=== PATIENT | female | born 2000 | race Caucasian/White ===

== ENCOUNTER 2020-12-02 11:23 | Outpatient (CLI) | payer OTHER, SELFPAY ==
--- NOTE | 2020-12-02 12:11 | ECG_ITS ---
Measurements Intervals [place] Rate: 69 P: 44 NM: 142 QRS: 11 QRSD: 84 T: 19 QT: 412 QTc: 444 Interpretive Statements SINUS RHYTHM BORDERLINE T WAVE ABNORMALITY- INFERIOR LEADS BASELINE WANDER- I, II, AVR, AVF, V2 BORDERLINE ECG Electronically Signed On 12-02-2020 12:21:04 CDT by Gary An D.O.
== END 2020-12-02 11:24 | disposition home or self-care (01) ==
LOC: ANHCARD 11:30
PROVIDERS: Visit Provider Obstetrics & Gynecology
DX: Z34.80 Encounter for supervision of other normal pregnancy, unspecified trimester (principal); R55 Syncope and collapse; Z3A.00 Weeks of gestation of pregnancy not specified
CPT/HCPCS: 93005

== ENCOUNTER 2021-05-12 10:56 | Outpatient (CLI) | payer OTHER, SELFPAY ==
[2021-05-12 11:40] VITALS: BP 121/76; PULSE 97
[2021-05-12 11:46] VITALS: BP 121/76; PULSE 97
[2021-05-12 12:01] VITALS: BP 120/75; PULSE 90
[2021-05-12 12:02] LABS: Basophils Percent Auto 0.3 % (0.2-1.2); Eosinophils Absolute Auto 0.1 K/mm3 (0-0.3); Eosinophils Percent Auto 0.8 % (0-4.4); Hematocrit 35.9 % (37.0-47.0); Hemoglobin 11.8 g/dL (12.0-15.0); Immature Granulocyte Percent A 0.9 % (0-0.5); Lymphocytes Absolute Auto 1.54 K/mm3 (0.9-3.2); Lymphocytes Percent Auto 14.3 % (18.3-44.2); Mean Corpuscular HGB Conc 32.9 g/dl (32-36); Mean Corpuscular Hemoglobin 29.7 pg (26-34); Mean Corpuscular Volume 90.4 fl (80-100); Mean Platelet Volume 9.6 fl (7.4-10.4); Monocytes Absolute Auto 0.7 K/mm3 (0.1-0.6); Monocytes Percent Auto 6.6 % (2.6-8.5); Neutrophils Absolute Auto 8.3 K/mm3 (1.3-6.7); Neutrophils Percent Auto 77.1 % (45.5-73.1); Platelet Count Result 253 k/mm3 (150-375); Red Blood Count 3.97 M/mm3 (4.2-5.4); Red Cell Distribution Width 13.8 % (11.5-14.5); White Blood Count 10.8 K/mm3 (4.5-10.0)
[2021-05-12 12:08] LABS: Add Urine Microscopic? YES; Appearance Urine Cloudy (Clear); Bacteria Urine 2+ /hpf; Bilirubin Urine Negative (Negative); Blood Urine Negative (Negative); Color Urine Yellow (Yellow); Glucose Urine UA Negative (Negative); Ketones Urine Negative (Negative); Leukocyte Esterase Ur 1+ LEU/UL (NEGATIVE); Nitrate Urine Negative (Negative); Protein Urine Negative (Negative); RBC Urine 0-2 /hpf (0-2); Squamous Epithelial Cell Urine Few /hpf (Few); Urobilinogen Urine Negative mg/dL (<2.0)
[2021-05-12 12:13] LABS: Alanine Aminotransferase 14 U/L (4-35); Albumin Level 4.1 g/dL (3.5-5.1); Alkaline Phosphatase 91 U/L (38-126); Anion Gap 11 mmol/L (8-16); Aspartate Amino Transferase 17 U/L (14-36); Bilirubin,Total 0.2 mg/dL (0.2-1.3); Blood Urea Nitrogen 3 mg/dL (7-17); Calcium 9.2 mg/dL (8.4-10.2); Carbon Dioxide 21 mmol/L (22-30); Chloride 106 mmol/L (98-107); Estimated Glomerular Filt Rate > 60; Glucose 79 mg/dL (65-110); Potassium 3.8 mmol/L (3.4-5.0); Sodium 138 mmol/L (137-145); Uric Acid 5.3 mg/dL (2.5-7.5)
[2021-05-12 12:16] VITALS: BP 121/68; PULSE 86
[2021-05-12 12:18] LABS: Creatinine Urine 23.7 mg/dL; Specific Grav Ur 1.004 (1.001-1.035); Total Protein Urine Random 16 mg/dL; Ur Ttl Prot Creatinine Ratio 0.68 mg/mg (0-0.20)
--- NOTE | 2021-05-12 13:38 | PC.NURSE ---
Labs and NST called to Dr Momin, orders for NST on and 24 hour urine collection.
== END 2021-05-12 12:41 | disposition home or self-care (01) ==
LOC: ANHOBOP 11:02 → ANHOBPP 11:06
PROVIDERS: Visit Provider Student in an Organized Health Care Education/Training Program
DX: O13.9 Gestational [pregnancy-induced] hypertension without significant proteinuria, unspecified trimester (principal); Z3A.00 Weeks of gestation of pregnancy not specified
CPT/HCPCS: 36415; 59025; 80053; 81001; 82570; 84156; 84550; 85025; 87086; 99199

== ENCOUNTER 2021-05-13 11:17 | Outpatient (CLI) | payer OTHER, SELFPAY ==
[2021-05-13 11:24] VITALS: BMI 37.8
[2021-05-13 12:26] LABS: Collection Time Urine 24 HOURS
[2021-05-13 13:47] LABS: Creatinine Urine 41.5 mg/dL; Patient Weight 220 Lbs
[2021-05-13 14:29] LABS: Total Protein Urine Random < 6.0 mg/dL (0.0-11.9)
[2021-05-13 21:04] LABS: Creatinine Clearance Urine 181.1 ml/min (75-125); Total Protein Urine 24 Hr 177 mg/24hr (28-141); Total Volume 24 Hour Urine 2950 ml
== END 2021-05-13 11:18 | disposition home or self-care (01) ==
LOC: ANHOBOP 11:19
PROVIDERS: Visit Provider Student in an Organized Health Care Education/Training Program
DX: Z34.90 Encounter for supervision of normal pregnancy, unspecified, unspecified trimester (principal); Z3A.00 Weeks of gestation of pregnancy not specified
CPT/HCPCS: 81050; 82575; 84156

== ENCOUNTER 2021-05-15 14:10 | Outpatient (RCR) | payer OTHER, SELFPAY ==
[2021-05-15 14:55] VITALS: BP 129/70; PULSE 94
== END 2021-08-13 23:59 | disposition home or self-care (01) ==
LOC: ANHOBOP 14:10
PROVIDERS: Visit Provider Student in an Organized Health Care Education/Training Program
DX: O16.3 Unspecified maternal hypertension, third trimester (principal); Z3A.39 39 weeks gestation of pregnancy
CPT/HCPCS: 59025

== ENCOUNTER 2021-05-19 00:01 | Inpatient (IN) | payer OTHER, SELFPAY ==
[2021-05-19] VITALS (130 sets, daily range): BP systolic 58–160; BP diastolic 40–122; PULSE 66–143; RESP 18–20; TEMP 36.4–37.1; O2SAT 84–100; BMI 37.8
--- NOTE | 2021-05-19 00:26 | LDADM ---
This patient, Sheryl Maria, was admitted to Labor/Delivery/Recovery 106 on 05/19/21 at 00:01. Plans for labor, pain management and were discussed with patient. Patient/family oriented to hospital policies and general routines including ID bracelet, bed and alarms, visiting hours, pain management, procedures, bathroom and other care routines, personal items, smoking policy, room service/diet and guest tray routines, infant security routines, and visiting hours. Patient/Family are encouraged to report perceived risks to care and to ask questions if they do not understand what they are told or what they should do. See OBIX for further documentation.
[2021-05-19] MEDS: miSOPROStol 25 MCG TABLET VAGINAL ×3 (00:44→08:40)
[2021-05-19 00:57] LABS: Basophils Percent Auto 0.4 % (0.2-1.2); Eosinophils Absolute Auto 0.1 K/mm3 (0-0.3); Eosinophils Percent Auto 0.7 % (0-4.4); Hematocrit 34.2 % (37.0-47.0); Hemoglobin 11.3 g/dL (12.0-15.0); Immature Granulocyte Absolute 0.08 K/mm3 (0.00-0.031); Immature Granulocyte Percent A 0.7 % (0-0.5); Lymphocytes Absolute Auto 2.02 K/mm3 (0.9-3.2); Lymphocytes Percent Auto 18.3 % (18.3-44.2); Mean Corpuscular Hemoglobin 29.5 pg (26-34); Mean Corpuscular Volume 89.3 fl (80-100); Mean Platelet Volume 9.4 fl (7.4-10.4); Monocytes Absolute Auto 0.7 K/mm3 (0.1-0.6); Monocytes Percent Auto 6.7 % (2.6-8.5); Neutrophils Absolute Auto 8.1 K/mm3 (1.3-6.7); Neutrophils Percent Auto 73.2 % (45.5-73.1); Platelet Count Result 246 k/mm3 (150-375); Red Blood Count 3.83 M/mm3 (4.2-5.4)
--- NOTE | 2021-05-19 07:48 | WPDHPUPDATE1 ---
History and Physical Update Update Date/Time: 05/19/21 07:48 20 yo at 39w4d who presents for elective IOL. She denies any regular contractions, vaginal bleeding or leakage of fluid. She endorses good FM. Her has been uncomplicated thus far. History and Physical has been reviewed, including an updated exam of the patient. There are NO changes in the patient's condition. Risks, benefits, and alternatives have been discussed and questions answered. Patient agrees to proceed with procedure. A/P: admit to L&D routine admission orders Rh+ GBS neg plan for cytotec IOL FHT cat 1 continous EFM
--- NOTE | 2021-05-19 10:23 | P.PNAN_ITS ---
Anes - Eval Pre Procedure Date/Time: 05/19/21 10:23 Pre Op Diagnosis: IOL Patient Data Age: 20 Gender: F Height: 1.63 m Weight: 100 kg Last Vital Signs Temp 98.2 F 05/19/21 08:37 Pulse 84 05/19/21 08:38 Resp 20 05/19/21 08:37 BP 143/66 H 05/19/21 08:38 Allergies Allergy/AdvReac Type Severity Reaction Status Date / Time No Known Allergies Allergy Verified 05/19/21 00:59 Home Medications Medication Instructions Recorded Confirmed Type PNV cmb#95-ferrous fumarate-FA 1 tablet PO DAILY 04/25/21 05/19/21 History [] Laboratory Tests 05/19/21 05/19/21 05/19/21 00:41 00:41 00:41 WBC 11.0 K/mm3 H K/mm3 (4.5-10.0) RBC 3.83 M/mm3 L M/mm3 (4.2-5.4) Hgb 11.3 g/dL L g/dL (12.0-15.0) Hct 34.2 % L % (37.0-47.0) MCV 89.3 fl fl (80-100) MCH 29.5 pg pg (26-34) MCHC 33.0 g/dl g/dl (32-36) RDW 14.0 % % (11.5-14.5) Plt Count 246 k/mm3 k/mm3 (150-375) MPV 9.4 fl fl (7.4-10.4) Immature Gran % (Auto) 0.7 % H % (0-0.5) Neut % (Auto) 73.2 % H % (45.5-73.1) Lymph % (Auto) 18.3 % % (18.3-44.2) [place] % (Auto) 6.7 % % (2.6-8.5) Eos % (Auto) 0.7 % % (0-4.4) Baso % (Auto) 0.4 % % (0.2-1.2) Lymph # (Auto) 2.02 K/mm3 K/mm3 (0.9-3.2) [place] # (Auto) 0.7 K/mm3 H K/mm3 (0.1-0.6) Eos # (Auto) 0.1 K/mm3 K/mm3 (0-0.3) Baso # (Auto) 0.0 K/mm3 K/mm3 (0.0-0.1) Abs Immat Gran (auto) 0.08 K/mm3 H K/mm3 (0.00-0.031) Absolute Neuts (auto) 8.1 K/mm3 H K/mm3 (1.3-6.7) Absolute Nucleated RBC 0.0 K/mm3 K/mm3 (0.0-0.012) Nucleated RBC % 0.0 % % (0.0-0.2) RPR Pending Blood Type A Positive Antibody Screen Negative Patient hx anesthesia problems: none Family hx anesthesia problems: none Results Review: All pre-operative results and documents have been reviewed as part of the pre-operative evaluation. [facility] Family History Family History (Updated 04/25/21 @ 15:37 by Bony Vazquez RN) Other No pertinent family history Social History Social History Smoking status: Never smoker Substance use: never Spiritual care concerns: No Exam Day of Procedure 05/19/21 10:23 Patient weight: obese
[2021-05-19 10:41] LABS: Rapid Plasma Reagin Non-Reactive (NonReactive)
[2021-05-19] MEDS: LACTATED RINGERS 1,000 ML 125 ML IV CONT ×2 (12:25→14:46)
[2021-05-19] MEDS: OXYTOCIN 30 UNITS/NS 500 ML 30 UNITS/500 ML BAG IV CONT (12:26)
--- NOTE | 2021-05-19 20:58 | PM.OBPRVD ---
OB - Delivery Note Procedure Delivery date: 05/19/21 Procedure: mil Intrapartal events: None Induction method: per misoprostol protocol Delivery augmentation: pitocin Delivery monitor: external FHT Route of delivery: Episiotomy description: None Laceration Description: Perineal - 2nd Degree Delivery repair: vicryl Specimen: No Quantitative Blood Loss (ml): 58 Anesthesia type: Local Disposition: floor Baby Date of : 05/19/21 Time of : 20:41 Weeks of gestation at delivery: 39 gender: Female Weight (pounds): 6 Weight (ounces): 5 presentation: vertex position: Right Occiput Anterior Placenta delivery description: Spontaneous cord vessel description: 3 Vessels score one minute: 9 score five minutes: 9
[2021-05-19] MEDS: OXYTOCIN 30 UNITS/NS 500 ML 30 UNITS/500 ML BAG 125 UNITS IV CONT (21:28)
[2021-05-20 00:15] VITALS: BP 118/51; PULSE 90; RESP 18; TEMP 36.7; O2SAT 98
[2021-05-20 05:00] VITALS: BP 119/58; PULSE 76; RESP 18; TEMP 35.8; O2SAT 100
[2021-05-20 05:17] LABS: Hematocrit 31.1 % (37.0-47.0); Hemoglobin 10.1 g/dL (12.0-15.0)
[2021-05-20 08:30] VITALS: BP 117/67; PULSE 88; RESP 16; TEMP 36.8; O2SAT 99
--- NOTE | 2021-05-20 10:30 | WPDANLDPN2 ---
Anes-Prog Note L&D Date/Time: 05/20/21 10:30 Comfortable throughout: labor and delivery Neuraxial method: epidural Epidural/Spinal procedure site: clean & non-tender Neuro status: Neuro function grossly intact. Cardiovascular status: normal Respiratory status: normal Airway patency: baseline Mental status: baseline Post-Op hydration status: normal Vital Signs: Last Vital Signs Temp 36.8 C 05/20/21 08:30 Pulse 88 05/20/21 08:30 Resp 16 05/20/21 08:30 BP 117/67 05/20/21 08:30 Pulse Ox 99 05/20/21 08:30 Pain score (VAS): 2 I/O: Intake & Output 05/19/21 05/20/21 05/20/21 23:59 07:59 15:59 Output Total 178 Balance -178 Post-procedural complaints: none Patient feedback: Patient satisfied with anesthetic care.
--- NOTE | 2021-05-20 11:04 | P.PNOB_ITS ---
OB - PN: Subj Subjective Date/time seen: 05/20/21 11:04 Patient comments: no complaints, pain well controlled and tolerating diet [place] feeding status: exclusively breast feeding Narrative: patient doing well this AM. No complaints. Pain is well controlled. She reports minimal bleeding. She is ambulating and voiding without difficulty. She is tolerating PO. She denies N/V, fever, chills. OB - PN: Obj Data Labs CBC & Chem 7: 05/20/21 04:52 Labs: Laboratory Results - last 24 hr 05/20/21 04:52 Hgb 10.1 L Hct 31.1 L OB - PN A/P Plan day: 1 Plan: routine care Comments: patient doing well H/H stable continue routine care Time Spent With Patient Time: Total time spent is greater than 50% in coordination of care (as documented) at patient's floor/unit and/or counseling patient: Time with patient: less than 15 minutes Review of Systems Review of Systems: All systems reviewed & are unremarkable except as noted in HPI and below Exam Const: General: comfortable and no acute distress Resp: Effort & Inspection: normal respiratory effort Cardio: Rate: regular rate GI: GI Palp: Yes Soft to palpation and No Tenderness to palpation present (GI) Auscultation: normal bowel sounds Other: fundus firm and below umbilicus. Psych: Affect: normal affect
[2021-05-20 11:42] VITALS: BP 117/69; PULSE 94; RESP 18; TEMP 37.5; O2SAT 99
[2021-05-20 16:40] VITALS: BP 142/74; PULSE 91; RESP 20; TEMP 36.6
[2021-05-20] MEDS: IBUPROFEN 600 MG TABLET PO (16:54)
[2021-05-20 20:00] VITALS: BP 122/63; PULSE 88; RESP 18; TEMP 36.4; O2SAT 99
--- NOTE | 2021-05-21 07:13 | P.DS_ITS ---
DS: Admitting Diagnosis Discharge Date 05/21/21 Admitting Diagnosis intrauterine at term OB - DS: Summary OB Procedures : None OB Procedures Intrapartum: Spontaneous Vag Delivery OB Procedures: : None Status at Discharge Functional status at discharge: independent ambulation Overall status at discharge: patient is back to baseline Time Spent with Patient Time attestation: Total time spent providing and/or coordinating discharge services: Time spent: Less than 30 minutes Exam Const: General: comfortable and no acute distress Resp: Effort & Inspection: normal respiratory effort Auscultation: clear to auscultation bilaterally Cardio: Rate: regular rate GI: GI Palp: Yes Soft to palpation Auscultation: normal bowel sounds Other: Fundus firm below umbilicus Psych: Appearance: grossly normal Mental Status: mental status grossly normal Affect: normal affect Discharge Plan Discharge Discharging Clinician: Nikolay Momin Patient Disposition: Home, Self-Care Activity: as tolerated and pelvic rest Diet: regular Patient Instructions: Antibiotic Form, Vaginal Delivery (DC) Stand Alone Forms: General Discharge Information Follow-up/Referrals: Nikolay Momin MD [Physician] - Discharge Medications: New acetaminophen [Mapap (acetaminophen)] 325 mg Tablet 650 mg PO Q6H PRN (Reason: Mild Pain (1-3) Or Headache) Qty: 30 RF: 0 ibuprofen 600 mg Tablet 600 mg PO Q6H PRN (Reason: Cramping) Qty: 30 RF: 0 Continued PNV cmb#95-ferrous fumarate-FA [] 28 mg iron- 800 mcg Tablet 1 tablet PO DAILY RF: 0 Date of admission: 05/19/21 00:01 Primary Care Provider: PHYSICIAN,DIRECTOR SOFTWARE Admitting Provider: Nikolay Momin Attending physician on admission: Nikolay Momin Condition: Stable
[2021-05-21 07:55] VITALS: BP 114/58; PULSE 85; RESP 16; TEMP 36.8; O2SAT 99
--- NOTE | 2021-05-21 10:00 | PC.NURSE ---
Patient viewed the discharge video Mother & Baby Care, The First Two Weeks . Patient was given the opportunity and encouraged to ask questions. Patient verbalized understanding of information shared and has been given the mother/baby guide for home reference.
[2021-05-22 10:47] VITALS: BP 129/68; PULSE 92; RESP 20; TEMP 37.1; O2SAT 100
== END 2021-05-21 11:43 | disposition home or self-care (01) | DRG 560 ==
LOC: ANHLDR 00:04 → ANHOB2 05-20 00:06
PROVIDERS: Obstetrics & Gynecology; Admitting Provider Student in an Organized Health Care Education/Training Program; Visit Provider Student in an Organized Health Care Education/Training Program
DX: O76 Abnormality in fetal heart rate and rhythm complicating labor and delivery (principal); O70.1 Second degree perineal laceration during delivery; Z3A.39 39 weeks gestation of pregnancy; Z37.0 Single live birth
CPT/HCPCS: 36415; 85014; 85018; 85025; 86592; 86850; 86900; 86901; A9270; J2590; J7120

== ENCOUNTER 2023-08-11 10:27 | Emergency (ER) | payer OTHER, MEDICAID, SELFPAY ==
[2023-08-11 10:41] VITALS: BP 121/67; PULSE 102; RESP 20; TEMP 36.8; O2SAT 99
--- NOTE | 2023-08-11 10:59 | ED.GENADULT ---
HPI - General Adult General Chief complaint: Upper Respiratory Infection Stated complaint: throat/headache/body aches/ear Source: patient, RN notes reviewed and old records reviewed Mode of arrival: ambulatory Limitations: no limitations History of Present Illness HPI narrative: 23-year-old female presents to [facility] with complaint of sore throat, headache, body aches, left ear pain that started yesterday. Patient taking [id number] medications with no relief. Patient denies cough, congestion, weakness, chest pain, short of breath MD complaint: sore throat Onset (ago): day(s) (1) Related Data Home Medications Medication Instructions Recorded Confirmed vit no.95-ferrous 1 tablet PO DAILY 04/25/21 05/19/21 fumarate 28 mg-folic acid 800 mcg tablet () sertraline 50 mg tablet mg 08/11/23 Allergies Allergy/AdvReac Type Severity Reaction Status Date / Time No Known Allergies Allergy Verified 11/27/21 14:49 Review of Systems Constitutional: Constitutional: Reports no additional constitutional complaints, Reports body ache(s), Denies chills, Denies fatigue, Denies fever(s) and Reports headache(s) Eyes: Eyes: Reports no additional eye complaints and Denies blurry vision ENT: Reports system reviewed and no additional complaints, except as documented, Denies vertigo, Denies dizziness, Denies ear discharge, Denies otalgia, Denies facial pain, Denies headache(s), Denies nasal congestion, Denies nasal discharge, Denies sinus pain, Denies sinus pressure and Reports sore throat Cardiovascular: Cardiovascular: Reports no additional cardiovascular complaints, Denies chest pain, Denies chest pain at rest, Denies rapid heart rate and Denies dyspnea Respiratory: Respiratory: Reports no additional respiratory complaints, Denies chest congestion, Denies cough, Denies pain on inspiration, Denies pain with cough and Denies dyspnea Gastrointestinal: Gastrointestinal: Denies abdominal pain, Denies diarrhea, Denies nausea and Denies vomiting Integumentary/Breasts: Skin/Breast: Denies rash Neurologic: Reports system reviewed and no additional complaints, except as documented, Denies vertigo, Denies dizziness and Denies headache(s) Endocrine: Endocrine: Denies fatigue [facility] Family History Family History Other No pertinent family history Social History Social History Smoking status: Never smoker Substance use: never Spiritual care concerns: No Comments At the time of my signature, I reviewed and agree with the nursing past medical, surgical, social, and family history. There is no relevant family history pertinent to the patient complaint. Exam Const: General: cooperative, healthy appearing, no acute distress and well nourished Nutritional Appearance: well nourished Orientation/consciousness: patient oriented x3 Limitations: no limitations HENMT: Head: normal to inspection and normocephalic Ears: external ears normal, TM's normal bilaterally, mastoids normal and Abnormal EAC present Face/Nose/Sinus: normal facial exam Face and sinus: normal facial exam Mouth: Yes Normal oral and palatal mucosa present, Yes oropharynx normal and Yes moist mucous membranes Throat: tonsils normal, uvula midline, posterior oropharynx abnormal erythema and exudates and no uvular edema Eyes: General: appearance normal, both eyes and all related structures Sclera: sclerae normal Pupils: Equal, round and reactive pupils present Resp: Effort & Inspection: normal respiratory effort, able to speak in complete sentences, no audible wheezes, no cough, no respiratory distress and no retractions Auscultation: clear to auscultation bilaterally, no crackles, no rales, no rhonchi and no wheezes Cardio: Rate: regular rate Rhythm: regular rhythm Skin: General skin exam: normal color and no rashes or lesions no
== END 2023-08-11 11:11 | disposition home or self-care (01) ==
PROVIDERS: Emergency Provider Registered Nurse
DX: J02.0 Streptococcal pharyngitis (principal)
CPT/HCPCS: 87880; 99213; G0463

== ENCOUNTER 2024-12-12 06:11 | Inpatient (IN) | payer OTHER, MEDICAID, SELFPAY ==
[2024-12-12] VITALS (251 sets, daily range): BP systolic 87–142; BP diastolic 28–83; PULSE 66–123; RESP 16–18; TEMP 36.5–37.6; O2SAT 92–100; BMI 40.4
--- OUTSIDE RECORDS SUMMARY | 2024-12-12 06:15 | XMS_ITS | Clinical Summary ---
Author Organization [facility] [place] Address [address] [place] [address] Phone Care Team Providers Care Zigzag Topstitcher Name Role Phone Eulalio Guthrie MD Primary Care Provider [phone] Allergies No known active allergies Medications sertraline (ZOLOFT) 50 MG Tablet Take 50 mg by mouth daily. 06/18/2022 Active Active Problems No known active problems Social History Tobacco Use Types Packs/Day Years Used Date Smoking Tobacco: Never Smokeless Tobacco: Never Tobacco Cessation:Counseling Given: Not Answered Alcohol Use Standard Drinks/Week Comments Never 0 (1 standard drink = 0.6 oz pur e alcohol) Sexually Active Control Partners Comments Yes Male Comments No Sex and Gender Information Value Date Recorded Sex Assigned at Not on file Legal Sex Female 12:06 AM CDT Gender Identity Not on file Sexual Orientation Not on file Last Filed Vital Signs Vital Sign Reading Time Taken Comments Blood Pressure 120/68 08/04/2022 1:31 PM [employer] Pulse 103 08/04/2022 1:31 PM [employer] Temperature 36.8 C (98.2 F) 08/04/2022 1:31 PM [employer] Respiratory Rate 16 08/04/2022 1:31 PM [employer] Oxygen Saturation 98% 08/04/2022 1:31 PM [employer] Inhaled Oxygen Concentration - - Weight 99.8 kg (220 lb) 08/04/2022 1:31 PM [employer] Height 162.6 cm (5' 4 ) 05/04/2021 2:04 PM CDT Body Mass Index 37.76 05/04/2021 2:04 PM CDT Plan of Treatment Health Maintenance Due Date Last Done Comments Hepatitis C Virus (HCV) Screening 1998 Influenza Immunization (#1) 04/16/202405/16, 05/12/2016, 05/07/2015, Additional history exists SARS-COV-2 Immunization ( season) 2024 09/28/2021, 08/27/2021 Respiratory Syncytial Virus (RSV) Immunization (Adult) (1 - 1-dose 75+ series) 2073 Hepatitis B Immunization Completed 000, 1998, 1998 Pneumococcal Immunization Combined Aged Out 12/28/2000 No longer eligible based on patient's age to complete this topic Human Papillomavirus (HPV) Immunization Completed 04/13/2014, 04/12/2013, 08/23/2012 Meningococcal Immunization (ACWY) Completed 05/07/2015, 04/12/2013 DTaP/Tdap/Td Immunization Discontinued 2020, 10/04/2019, 07/18/2009, Additional history exists TdaP Immunization Completed 05/07/2021, , 07/18/2009 Rotavirus Immunization Aged Out No lo nger eligible based on patient's age to complete this topic Insurance [address], [place] [id number] MEDICAID [employer] Care Teams Zigzag Topstitcher Relationship Specialty Start Date End Date Eulalio Guthrie MD [address] [place] [id number] (work) PCP - General Family Medicine 08/04/22
--- OUTSIDE RECORDS SUMMARY | 2024-12-12 06:15 | XMS_ITS | Clinical Summary ---
Author Organization [facility] Address [address] [place] [address] Phone Care Team Providers Care Radio Machinist Name Role Phone MAYURI RAMOS MD Primary Care Provider [phone] RACHEL Quick, VALARIE Hopkins [phone] Reason for Visit and Chief Complaint CHECK UP Problems Includes: Problems addressed during this encounter and other active Problems All Visits Onset Date Resolved Date Provider Condition S tatus Depression 08/18/2022 VALARIE Jiménez M.D. Active Last Documented On 3:41PM ; [facility] Plan of Treatment No Plan of Treatment Recorded Assessments Includes: Assessments from this encounter No Assessments Recorded Medical Equipment - Implanted Devices Includes: Current Devices No Medical Equipment Recorded Medications Includes: Medications discussed during this encounter and other current Medications Current Medications (continue as prescribed) Naproxen 500 MG Oral Tablet 01/12/2024 Provider: VALARIE RAMOS M.D. Diagnosis: Pain in right kn ee ONE TABLET TWICE A DAY/ TAKE WITH FOOD Last Documented On 01/12/2024 9:00AM By MAYURI RAMOS MD ; [facility] Sertraline HCl 25 MG Oral Tablet 11/18/2023 Provider: VALARIE RAMOS M.D. Diagnosis: depre ssion One tablet daily Last Documented On 11/18/2023 3:56PM By MAYURI RAMOS MD ; [facility] Sertraline HCl 50 MG Oral Tablet 10/07/2023 Provider : VALARIE RAMOS M.D. Diagnosis: One tablet daily Last Documented On 10/07/2023 8:58AM By MAYURI RAMOS MD ; [facility] Terbinafine HCl 250 MG Oral Tablet 09/08/2023 Provider: VALARIE RAMOS M.D. Diagnosis: Pityriasis versi color 1 TABLET DAILY Last Documented On 09/08/2023 11:41AM By MAYURI RAMOS MD ; [facility] Medications Administered Includes: Administered Medications from this encounter No Administered Medications Recorded Results Includes: Results discussed during this encounter No Results Recorded For Specified Dates History of Present Illness Includes: History of Present Illness from this encounter No History of Present Illness Recorded Social History No Social History Recorded - Smoking Status Unknown Medical History Includes: Medical History addressed during this encounter No Medical History Recorded Family History Includes: Family History addressed during this encounter No Family History Recorded Review of Systems Includes: Review of Systems from this encounter No Review of Systems Recorded Mental Status Includes: Mental Status from this encounter No Mental Status Recorded Functional Status Includes: Functional Status from this encounter No Functional Status Recorded Physical Exam Includes: Physical Exam from this encounter No Physical Exam Recorded Allergies Includes: Active Allergies No Known Allergies Insurance Includes: Active Insurance Policies Plan Name Member ID Group # Subscriber Relationship Effect william Dates 1 - [facility] [id number] LIANA [place] 2 - MED[employer]ID [facility] [id number] LIANA [place] Clinical Notes Includes: Clinical Notes from this encounter No Clinical Notes Recorded
--- OUTSIDE RECORDS SUMMARY | 2024-12-12 06:15 | XMS_ITS | Clinical Summary ---
Author Organization [facility] Address [address] [place] [address] Phone Care Team Providers Care Junior [employer] Teacher Name Role Phone MAYURI RAMOS MD Primary Care Provider [phone] RACHEL Quick, VALARIE Hopkins [phone] Reason for Visit and Chief Complaint CHECK UP Problems Includes: Problems addressed during this encounter and other active Problems All Visits Onset Date Resolved Date Provider Condition S tatus Depression 08/18/2022 VALARIE Jiménez M.D. Active Last Documented On 3:41PM ; [facility] Plan of Treatment No Plan of Treatment [...] 01/12/2024 9:00AM By MAYURI RAMOS MD ; [facility] Sertraline HCl 25 MG Oral Tablet 11/18/2023 Provider: VALARIE RAMOS M.D. Diagnosis: depre ssion One tablet daily Last Documented On 11/18/2023 3:56PM By MAYURI RAMOS MD ; [facility] Sertraline HCl 50 MG Oral Tablet 10/07/2023 Provider : VALARIE RAMOS M.D. Diagnosis: One tablet daily Last Documented On 10/07/2023 8:58AM By MAYURI RAMOS MD ; [facility] Terbinafine HCl 250 MG Oral Tablet 09/08/2023 Provider: VALARIE RAMOS M.D. Diagnosis: Pityriasis versi color 1 TABLET DAILY Last Documented On 09/08/2023 11:41AM By MAYURI RAMOS MD ; [facility] Medications Administered Includes: Administered Medications [...] Subscriber Relationship Effect william Dates 1 - [facility] [id number] LIANA [place] 2 - [employer] [facility] [id number] LIANA [place] Clinical Notes Includes: Clinical Notes from this encounter No Clinical Notes Recorded
--- OUTSIDE RECORDS SUMMARY | 2024-12-12 06:16 | XMS_ITS ---
Author Organization [facility] Address [address] [place] [address] Phone Care Team Providers Care Top Collar Baster Name Role Phone MAYURI RAMOS MD Primary Care Provider [phone] RACHEL Quick, VALARIE Hopkins [phone] Problems Includes: Active, inactive, and resolved Problems All Visits Onset Date Resolved Date Provider Condition S tatus Depression 08/18/2022 VALARIE Jiménez M.D. Active Last Documented On 3 3:41PM ; [facility] Plan of Treatment Findings Encounter Date Ordered patient to call if monalisa blandonm develops PROBLEM VISIT with VALARIE RAMOS M.D. 12/15/2023 Last Documented On 4 4:14PM ; [facility] Ordered return to the clinic if condition worsens or new symptoms arise PROBLEM VISIT with VALARIE RAMOS M.D. 12/15/2023 Last Documented On 4 4:14PM ; [facility] Plan - start medication PROBLEM VISIT with EUGENIA RAMOS M.D. 12/15/2023 Last Documented On 4 4:14PM ; [facility] Modify drug dosage sertralin e 25 mg a day x 1 week / then 1 tab every other day x 2 weeks then DC CHECK UP with VALARIE RAMOS M.D. 11/18/2023 Last Documented On 4 3:44PM ; [facility] Ordered patient to call if p yulianalem develops CHECK UP with VALARIE RAMOS M.D. 11/18/2023 Last Documented On 4 3:44PM ; [facility] Ordered return to the clinic if condition worsens or new symptoms arise CHECK UP with VALARIE RAMOS M.D. 11/18/2023 Last Documented On 4 3:44PM ; [facility] Continue current medication wiull try to taper off meds in Spring ANNUAL PHYSICAL EXAM with VALARIE RAMOS M.D. 08/19/2023 Last Documented On 4 4:21PM ; [facility] Ordered patient to call if monalisa khan develops ANNUAL PHYSICAL EXAM with VALARIE RAMOS M.D. 08/19/2023 Last Documented On 4 4:21PM ; [facility] Ordered return to the clinic if condition worsens or new symptoms arise ANNUAL PHYSICAL EXAM with VALARIE RAMOS M.D. 08/19/2023 Last Documented On 4 4:21PM ; [facility] Treatment options reviewed w ith the patient related to condition/diagnosis. Discussed advantages and disadvantages as well as risks/potential complications related to nail surgery. Risk of recurrence explained. All questions answered, informed consent reviewed and pt agrees to proceed. PROCEDURE: [id number] hallux bilateral border matrixectomy Local infiltration was given consisting of 12 cc of a 1:1 mixture of 0.5% marcaine plain and 1% lidocaine plain Betadine prep was preformed to the Right toe followed by proper sterile draping. After confirming full anesthetic effect to the proper site, the nail fold was released from the bilateral border of the toe. An Georgian anvil was used to initiate the linear splitting of the nail border and completed with a #62 blade. The hemostat was used to completely resect the offending nail border. Curettage was performed to the nail bed and exposed nail matrix. At that time, 6- 30 second applications of Phenol was applied to the exposed nail matrix using cotton tip applicators. The site was lightly irrigated and a moist sterile dressing was applied. Pt tolerated procedure well with no complications encountered. Written instructions have been given and reviewed with pt regarding after care. Follow up in 2 weeks Patient has chosen to have the Left hallux bilateral border removed at the next visit. PODIATRY CONSULTATION- ESTABLISHED PATIENT with BASHIR Mckeon RHIANNONJORDAN CHECK PROCESSOR C 05/25/2023 Last Documented On 3 8:02AM ; [facility] Ordered patient to call if p roblem develops PROBLEM VISIT with VALARIE RAMOS M.D. 02/11/2023 Last Documented On 3 10:34AM ; [facility] Ordered return to the clinic if condition worsens or new symptoms arise PROBLEM VISIT with VALARIE RAMOS M.D. 02/11/2023 Last Documented On 3 10:34AM ; [facility] Plan - start medication ibup rofen as needed PROBLEM VISIT with VALARIE Joaquin RAMOS M.D. 02/11/2023 Last Documented On 3 10:34AM ; [facility] Continue current medication CHECK UP with MILECI O S RACHEL Quick 08/18/2022 Last Documented On 3 3:45PM ; [facility] Ordered patient to call if p roblem develops CHECK UP with VALARIE S RACHEL M.Fabian 08/18/2022 Last Documented On 3 3:45PM ; [facility] Ordered return to the clinic if condition worsens or new symptoms arise CHECK UP with VALARIE S RACHEL Roland.Fabian 08/18/2022 Last Documented On 3 3:45PM ; [facility] Continue current medication NEW PATIENT EXAM - ADULT with VALARIE S RACHEL M.D. 08/06/2021 Last Documented On 1 2:03PM ; [facility] Monitor Blood Pressure at home NEW PATIE NT EXAM - ADULT with VALARIE S RACHEL M.D. 08/06/2021 Last Documented On 1 2:03PM ; [facility] Ordered patient to call if p roblem develops NEW PATIENT EXAM - ADULT with VALARIE S RACHEL M.D. 08/06/2021 Last Documented On 1 2:03PM ; [facility] Ordered return to the clinic if condition worsens or new symptoms arise NEW PATIENT EXAM - ADULT with VALARIE S RACHEL M.D. 08/06/2021 Last Documented On 1 2:03PM ; [facility] Instructions to patient Intervention and counseling on cessation of tobacco use Last Documented On 3 3:35PM ; [facility] Assessments Includes: Assessments for all patient encounters Findings Encounter Date Arthralgia of the right knee/patella/tibia/fibula PROBLEM VISIT with VALARIE RAMOS M.D. 12/15/2023 Last Documented On 4 4:14PM ; [facility] depression CHECK UP with VALARIE MONAE M.D. 11/18/2023 Last Documented On 4 3:44PM ; [facility] depression ANNUAL PHYSICAL EXAM with VALARIE RAMOS M.D. 08/19/2023 Last Documented On 4 4:21PM ; [facility] Routine adult history and ph ysical (18-64 yrs) with abnormal findings ANNUAL PHYSICAL EXAM with VALARIE RAMOS M.D. 08/19/2023 Last Documented On 4 4:21PM ; [facility] Tinea versicolor ANNUAL PHYSICAL EXAM with EUGENIA RAMOS M.D. 08/19/2023 Last Documented On 4 4:21PM ; [facility] Ingrowing toenail of right foot PODIATRY CONSULTATION- ESTABLISHED PATIENT with BASHIR A ONTIS CHECK PROCESSOR C 05/25/2023 Last Documented On 3 8:02AM ; [facility] Pain in right toe PODIATRY CONSULTATIO N- ESTABLISHED PATIENT with BASHIR A ONTIS CHECK PROCESSOR C 05/25/2023 Last Documented On 3 8:02AM ; [facility] Routine history and physical WORK PX with CASEY RAMOS M.D. 03/24/2023 Last Documented On 3 11:50AM ; [facility] Strain of left rhomboid muscles PROBLEM VISIT wi VALARIE RAMOS M.D. 02/11/2023 Last Documented On 3 10:34AM ; [facility] Fatigue CHECK UP with VALARIE Peralta 08/18/2022 Last Documented On 3 3:45PM ; [facility] depression CHECK UP with VALARIE MONAE M.D. 08/18/2022 Last Documented On 3 3:45PM ; [facility] Routine adult history and ph ysical (18-64 yrs) with abnormal findings CHECK UP with VALARIE RAMOS M.D. 08/18/2022 Last Documented On 3 3:45PM ; [facility] depression NEW PATIENT EXAM - ADULT w ith VALARIE RAMOS M.D. 08/06/2021 Last Documented On 1 2:03PM ; [facility] Routine adult history and ph ysical (18-64 yrs) with abnormal findings NEW PATIENT EXAM - ADULT with VALARIE RAMOS M.D. 08/06/2021 Last Documented On 1 2:03PM ; [facility] Instructions Includes: Instructions for all patient encounters Instructions to patient Intervention and counseling on cessation of tobacco use Last Documented On 3 3:35PM ; [facility] Medical Equipment - Implanted Devices Includes: Current and historical Devices No Medical Equipment Recorded Medications Includes: Current and historical Medications Current Medications (continue as prescribed) Naproxen 500 MG Oral Tablet 01/12/2024 Provider: VALARIE RAMOS M.D. Diagnosis: Pain in right kn ee ONE TABLET TWICE A DAY/ TAKE WITH FOOD Last Documented On 01/12/2024 9:00AM By MAYURI RAMOS MD ; [facility] Sertraline HCl 25 MG Oral Tablet 11/18/2023 Provider: VALARIE RAMOS M.D. Diagnosis: depre ssion One tablet daily Last Documented On 11/18/2023 3:56PM By MAYURI RAMOS MD ; [facility] Sertraline HCl 50 MG Oral Tablet 10/07/2023 Provider : VALARIE RAMOS M.D. Diagnosis: One tablet daily Last Documented On 10/07/2023 8:58AM By MAYRUI RAMOS MD ; [facility] Terbinafine HCl 250 MG Oral Tablet 09/08/2023 Provider: VALARIE RAMOS M.D. Diagnosis: Pityriasis versi color 1 TABLET DAILY Last Documented On 09/08/2023 11:41AM By MAYURI RAMOS MD ; [facility] Past Medications on file Naproxen 500 MG Oral Tablet 12/15/2023 - 01/12/2024 Provider: VALARIE RAMOS M.D. Diagnosis: Pain in right kn ee One tablet twice a day/ take with food Last Documented On 01/12/2024 8:49AM By MAYURI RAMOS MD ; [facility] Terbinafine HCl 250 MG Oral Tablet 08/19/2023 - 09/08/2023 Provider: VALARIE RAMOS M.D. Diagnosis: Pityriasis versi color One tablet daily Last Documented On 09/08/2023 11:33AM By MAYURI RAMOS MD ; [facility] Sertraline HCl 50 MG Oral Tablet 07/09/2023 - 10/07/2023 Provider: VALARIE RAMOS M.D. Diagnosis: One tablet daily Last Documented On 10/07/2023 8:52AM By MAYURI RAMOS MD ; [facility] Sertraline HCl 50 MG Oral Tablet 06/11/2023 - 07/09/2023 Provider: VALARIE RAMOS M.D. Diagnosis: TAKE 1 TABLET BY MOUTH EVERY DAY Last Documented On 07/09/2023 8:55AM By MAYURI RAMOS MD ; [facility] Sertraline HCl 50 MG Oral Tablet 05/14/2023 - 06/11/2023 Provider: VALARIE RAMOS M.D. Diagnosis: TAKE 1 TABLET BY MOUTH EVERY DAY Last Documented On 06/11/2023 8:57AM By MAYURI RAMOS MD ; [facility] Sertraline HCl 50 MG Oral Tablet 01/12/2023 - 05/14/2023 Provider: VALARIE RAMOS M.D. Diagnosis: TAKE 1 TABLET BY MOUTH EVERY DAY Last Documented On 05/14/2023 11:11AM By MAYURI RAMOS MD ; [facility] Sertraline HCl 50 MG Oral Tablet 11/23/2022 - 01/12/2023 Provider: VALARIE RAMOS M.D. Diagnosis: One tablet daily Last Documented On 8:19PM By NOEMI WASHINGTON PA-C ; [facility] Sertraline HCl 50 MG Oral Tablet 08/06/2021 - 11/24/19 Provider: Diagnosis: once a day Last Documented On 11/23/2022 1:56PM By MAYURI RAMOS MD ; [facility] Medications Administered Includes: Administered Medications in patient's chart No Administered Medications Recorded Vital Signs Includes: Vital Signs from 12/13/2023 through 12/12/2024 Vital Name 12/15/2023 03:43P Blood Pressure Sitting (mmHg) 118/70 Pulse Rate-Sitting (bpm) 80 Respiration Rate (breaths/min) 18 Temp-Oral (F) 97.7 Height (in) 64 Weight (lb) 198 Body Mass Index 34 Body Surface Area 1.9 Oxygen Saturation (%) 98 Last Documented: On 12/15/2023 3:49PM ; [facility] Results Includes: Results from 12/13/2023 through 12/12/2024 No Results Recorded For Specified Dates History of Present Illness History of Present Illness not supported for this document type No History of Present Illness Recorded Social History Description Last Updated Consuming 5 or more drinks per day None 08/19/2023 Last Documented On 4 4:21PM ; [facility] Not recovering alcoholic 08/19/2023 Last Documented On 4 4:21PM ; [facility] Not recovering from substance abuse 11/2023 Last Documented On 4 4:21PM ; [facility] Number of times used recreat ional drug/ prescription drug for nonmedical reason. None 08/19/2023 Last Documented On 4 4:21PM ; [facility] Not a job-related injury 05/25/2023 Last Documented On 3 8:02AM ; [facility] Not a current smoker 02/11/2023 Last Documented On 3 10:34AM ; [facility] Working part-time 08/18/2022 Last Documented On 3 3:45PM ; [facility] Currently 08/06/2021 Last Documented On 1 2:03PM ; [facility] No tobacco use 08/06/2021 Last Documented On 1 2:03PM ; [facility] Not using alcohol 08/06/2021 Last Documented On 1 2:03PM ; [facility] Not using drugs 08/06/2021 Last Documented On 1 2:03PM ; [facility] Tobacco non-user 08/06/2021 Last Documented On 1 2:03PM ; [facility] Smoking Status Unknown Medical History Includes: Medical History in patient's chart Description Last Updated Vaccine history 08/19/2023 Last Documented On 4 4:21PM ; [facility] Pain/condition occurs when non-weight be aring 05/25/2023 Last Documented On 3 8:02AM ; [facility] Taking medication on Sertraline 03/24/20 23 Last Documented On 3 11:50AM ; [facility] Family History Includes: Family History in patient's chart Description Last Updated 1 children 08/06/2021 Last Documented On 1 2:03PM ; [facility] Review of Systems Review of Systems not supported for this document type No Review of Systems Recorded Mental Status No Mental Status Recorded Functional Status No Functional Status Recorded Physical Exam Physical Exam not supported for this document type No Physical Exam Recorded Allergies Includes: Active, inactive, and resolved Allergies No Known Allergies Encounters Includes: Encounters from 12/13/2023 through 12/12/2024 Encounter Provider Location Date Check-In Time Check-Out Time Diagnosis PROBLEM VISIT VALARIE RAMOS M.D. [facility] 12/15/19 24 3:40PM 4:36PM Arthralgia - Knee / Patella / Tibia / Fibula Right Insurance Includes: Active Insurance Policies Plan Name Member ID Group # Subscriber Relationship Effect william Dates 1 - [facility] [id number] LIANA GARCÍA Self 2 - MEDICA[employer] [facility] [id number] LIANA Crawford Clinical Notes Includes: Signed Clinical Notes starting from 09/04/2022 * Progress note Date Encounter Last Documented by 12/15/2023 PROBLEM VISIT Last documented on 12/15/2023; 4:14 PM, VALARIE RAMOS M.D.; [facility] Active Problems & Conditions - F53.0 - Depression Chief Complaint The Chief Complaint is: Right knee pain for a few months. History of Present Illness LIANA GARCÍA is a 23 year old female. R knee pain at night/ on and off worse x few night no falls or trauma minimal pain at daytime no pain on ambulation/ activities [facility] a few days ago now with some muffled hearing at L. - Allergy list reviewed - Medication list reviewed - Not feeling tired - Not feeling poorly (malaise) - No fever - , and No chills - No facial pain - No neck pain - No nasal discharge - No sneezing - No hoarseness - , and No sore throat - No chest pain or discomfort - Not feeling congested in the chest - No cough - , and Not coughing up sputum - No nausea - No vomiting - No abdominal pain - , and No diarrhea - No myalgia Current Medication - Sertraline HCl 25 MG Oral Tablet One tablet daily, 30 days, 0 refills - Sertraline HCl 50 MG Oral Tablet One tablet daily, 90 days, 0 refills - Terbinafine HCl 250 MG Oral Tablet 1 TABLET DAILY, 15 days, 0 refills Past Medical/Surgical History Reported: Medical: Vaccine history and orthopedic history Left Knee Score pain/condition occurs when weight-bearing pain/condition occurs when non-weight bearing. Medications: Taking medication on Sertraline. Social History Tobacco use: No tobacco use and not a current smoker. Tobacco non-user. Alcohol: Not using alcohol. Consuming 5 or more drinks per day None. Not recovering alcoholic. Drug Use: Not using drugs and not recovering from substance abuse. Number of times used recreational drug/ prescription drug for nonmedical reason. None. Work: Working part-time. Not a job-related injury. Marital: Currently . Allergies - No Known Allergies Family History 1 children Review Of Systems Systemic: No edema. Head: No headache. Eyes: No itching of the eyes and no watery discharge from eyes. Cardiovascular: No chest pain or discomfort. Pulmonary: No shortness of breath. Neurological: No dizziness. Physical Findings - Vitals taken 12/15/2023 03:43 pm BP-Sitting 118/70 mmHg 100 - 120/56 - 80 Pulse Rate-Sitting 80 bpm 50 - 100 Respiration Rate 18 per min 18 - 26 Temp-Oral 97.7 F 96 - 101 Height 64 in 60 - 69 Weight 198 lbs 98 - 183 Body Mass Index 34 kg/m2 Body Surface Area 1.9 m2 Oxygen Saturation 98 % 93 - 100 General Appearance: - Well hydrated. - Well developed. - In no acute distress. Neck: - Normal. Eyes: General/bilateral: - Eyes: normal. Ears: General/bilateral: - Ears: normal. Nose: General/bilateral: - Nose: normal. Oral Cavity: - Normal. Lungs: - Normal. Cardiovascular: Heart Rate And Rhythm: - Normal. Heart Sounds: - Normal. Musculoskeletal System: General/bilateral: - Overall findings were normal normal R knee/ exam / good ROM. Assessment - M25.561 - Pain in right knee Therapy - Education and instructions. Counseling/Education - Plan of care reviewed and agreed to current plan of treatment Plan StartCited - Pain in right knee Naproxen 500 MG tablet One tablet twice a day/ take with food, 30 days, 0 refills EndCited - Return to the clinic if condition worsens or new symptoms arise - Patient to call if problem develops - Plan - start medication Practice Management Use of tobacco assessment performed Review of medications documented.
--- OUTSIDE RECORDS SUMMARY | 2024-12-12 06:16 | XMS_ITS | Clinical Summary ---
Author Organization [facility] Address [address] [place] [address] Phone Care Team Providers Care Perch Mender Name Role Phone MAYURI RAMOS MD Primary Care Provider [phone] RACHEL Quick, VALARIE Hopkins [phone] Reason for Visit and Chief Complaint visit for: Depression Followup, visit for: Anxiety Followup - The Chief Complaint is: Checkup, no concerns Problems Includes: Problems addressed during this encounter and other active Problems Current Visit Onset Date Resolved Date Provider Waqar jiménez Status Depression 08/18/2022 VALARIE Jiménez M.D. Active Last Documented On 3:41PM ; [facility] Plan of Treatment - Return to the clinic if condition worsens or new symptoms arise - Last Documented On 11/18/2023 3:44PM ; [facility] - Modify drug dosage sertraline 25 mg a day x 1 week / then 1 tab every other day x 2 weeks - Last Documented On 11/18/2023 3:44PM ; [facility] then DC - Patient to call if problem develops - Last Documented On 11/18/2023 3:44PM ; [facility] Assessments Includes: Assessments from this encounter Findings - F53.0 - depression - Last Documented On 11/18/2023 3:44PM ; [facility] Medical Equipment - Implanted Devices Includes: Current Devices No Medical Equipment Recorded Medications Includes: Medications discussed during this encounter and other current Medications New / Renewed during this visit VALARIE RAMOS M.D. on 11/18/2023 Sertraline HCl 25 MG Oral Tablet Provider: VALARIE RAMOS M.D. 30 day supply: 30 tablet, 0 refills Diagnosis: depression One tablet daily Pharmacy: [facility] [id number] , [place], [address] - Last Documented On 11/18/2023 3:56PM By MAYURI RAMOS MD ; [facility] Current Medications (continue as prescribed) Naproxen 500 MG Oral Tablet 01/12/2024 Provider: VALARIE RAMOS M.D. Diagnosis: Pain in right kn ee ONE TABLET TWICE A DAY/ TAKE WITH FOOD Last Documented On 01/12/2024 9:00AM By MAYURI RAMOS MD ; [facility] Sertraline HCl 50 MG Oral Tablet 10/07/2023 Provider : VALARIE RAMOS M.D. Diagnosis: One tablet daily Last Documented On 10/07/2023 8:58AM By MAYURI RAMOS MD ; [facility] Terbinafine HCl 250 MG Oral Tablet 09/08/2023 Provider: VALARIE RAMOS M.D. Diagnosis: Pityriasis versi color 1 TABLET DAILY Last Documented On 09/08/2023 11:41AM By MAYURI RAMOS MD ; [facility] Medications Administered Includes: Administered Medications from this encounter No Administered Medications Recorded Vital Signs Includes: Vital Signs from this encounter Vital Name 11/18/2023 03:20P Blood Pressure Sitting (mmHg) 126/80 Pulse Rate-Sitting (bpm) 87 Respiration Rate (breaths/min) 19 Temp-Oral (F) 98.1 Height (in) 64 Weight (lb) 201.6 Body Mass Index 34.6 Body Surface Area 2 Oxygen Saturation (%) 99 Last Documented: On 11/18/2023 3:23PM ; [facility] Results Includes: Results discussed during this encounter No Results Recorded For Specified Dates History of Present Illness Includes: History of Present Illness from this encounter MORENO GARCÍA is a 23 year old female. Has been on sertraline at 25 mg x 2 weeks ready to taper down feels ok' skin lesions are better counselled on weight loss. - Allergy list reviewed - Medication list reviewed Depression stable on curent meds. Tolerating medications without problems Anxiety stable on curent meds. 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 None 08/19/2023 Last Documented On 4 3:19PM ; [facility] Not a job-related injury 05/25/2023 Last Documented On 4 3:19PM ; [facility] Not a current smoker 02/11/2023 Last Documented On 4 3:19PM ; [facility] Working part-time 08/18/2022 Last Documented On 4 3:19PM ; [facility] Currently 08/06/2021 Last Documented On 4 3:19PM ; [facility] No tobacco use 08/06/2021 Last Documented On 4 3:19PM ; [facility] Not using alcohol 08/06/2021 Last Documented On 4 3:19PM ; [facility] Not using drugs 08/06/2021 Last Documented On 4 3:19PM ; [facility] Tobacco non-user 08/06/2021 Last Documented On 4 3:19PM ; [facility] Smoking Status Unknown Procedures and Surgical History Includes: Procedures from this encounter Procedures Code Diagnosis Performing Provider Service L ocation Service Date use of tobacco assessment performed 1000F Last Documented On 4 3:23PM ; [facility] standardized depression screening: negative for symptoms 3351F Last Documented On 4 3:20PM ; [facility] review of medications documented 1160F Last Documented On 4 3:23PM ; [facility] assessment of suicide risk performed Last Documented On 4 3:20PM ; [facility] screening for adult depression: impressi on and score 0 Last Documented On 4 3:20PM ; [facility] Medical History Includes: Medical History addressed during this encounter Description Last Updated Vaccine history 08/19/2023 Last Documented On 4 3:19PM ; [facility] Pain/condition occurs when non-weight be aring 05/25/2023 Last Documented On 4 3:19PM ; [facility] Taking medication on Sertraline 03/24/20 Last Documented On 4 3:19PM ; [facility] Family History Includes: Family History addressed during this encounter Description Last Updated 1 children 08/06/2021 Last Documented On 4 3:19PM ; [facility] Review of Systems Includes: Review of Systems from this encounter Systemic: Not feeling tired. No fever, no chills, no night sweats, and no edema. Head: No headache. Cardiovascular: No chest pain or discomfort and no palpitations. Pulmonary: No dyspnea and not expressed as feeling short of breath. No paroxysmal nocturnal dyspnea, no orthopnea, no cough, not coughing up sputum, no hemoptysis, and no wheezing. Gastrointestinal: Normal appetite and no polyphagia. No early satiety, no abdominal pain, and no melena. No diarrhea and no constipation. Genitourinary: No hematuria, no change in urinary frequency, and no polyuria. No dysuria. Endocrine: No polydipsia. Musculoskeletal: No muscle aches and no arthralgias. Neurological: No dizziness and no fainting. Mental Status Includes: Mental Status from this encounter Description Oriented to time, place, and person depression Functional Status Includes: Functional Status from this encounter No Functional Status Recorded Physical Exam Includes: Physical Exam from this encounter Allergies Includes: Active Allergies No Known Allergies Encounters Encounter Provider Location Date Check-In Time Check-Out Time Diagnosis CHECK UP VALARIE RAMOS M.D. [facility] 11/18/19 24 3:17PM 3:41PM Depression Insurance Includes: Active Insurance Policies Plan Name Member ID Group # Subscriber Relationship Effect william Dates 1 - [facility] [id number] LIANA Crawford 2 - MEDICAID [place] [facility] [id number] LIANA E GARCÍA Self Clinical Notes Includes: Clinical Notes from this encounter * Progress note Date Encounter Last Documented by 11/18/2023 CHECK UP Last documented on 11/18/2023; 3:44 PM, VALARIE RAMOS M.D.; [facility] Active Problems & Conditions - F53.0 - Depression Chief Complaint The Chief Complaint is: Checkup, no concerns. Reason For Visit Visit for: Anxiety Followup and visit for: Depression Followup. History of Present Illness LIANA GARCÍA is a 23 year old female. Has been on sertraline at 25 mg x 2 weeks ready to taper down feels ok' skin lesions are better counselled on weight loss. - Allergy list reviewed - Medication list reviewed Depression stable on curent meds. Tolerating medications without problems Anxiety stable on curent meds. Tolerating medications without problems Current Medication - Sertraline HCl 50 MG Oral Tablet [...] History 1 children Review Of Systems Systemic: Not feeling tired. No fever, no chills, no night sweats, and no edema. Head: No headache. Cardiovascular: No chest pain or discomfort and no palpitations. Pulmonary: No dyspnea and not expressed as feeling short of breath. No paroxysmal nocturnal dyspnea, no orthopnea, no cough, not coughing up sputum, no hemoptysis, and no wheezing. Gastrointestinal: Normal appetite and no polyphagia. No early satiety, no abdominal pain, and no melena. No diarrhea and no constipation. Genitourinary: No hematuria, no change in urinary frequency, and no polyuria. No dysuria. Endocrine: No polydipsia. Musculoskeletal: No muscle aches and no arthralgias. Neurological: No dizziness and no fainting. Physical Findings - Vitals taken 11/18/2023 03:20 pm BP-Sitting 126/80 mmHg 100 - 120/56 - 80 Pulse Rate-Sitting 87 bpm 50 - 100 Respiration Rate 19 per min 18 - 26 Temp-Oral 98.1 F 96 - 101 Height 64 in 60 - 69 Weight 201 lbs 9.6 oz 98 - 183 Body Mass Index 34.6 kg/m2 Body Surface Area 2 m2 Oxygen Saturation 99 % 93 - 100 Standard Measurements: - Patient was observed to be obese. General Appearance: - Well hydrated. - Well developed. - In no acute distress. Neck: - Normal No lymphadenopathy, no neck masses, trachea midline. Eyes: General/bilateral: - Eyes: normal Anicteric, pink conjunctivae, eyelids are normal. Pupils: - PERRL Pupils equally reactive to light and accomodation. Lungs: - Respiration rhythm and depth was normal Normal respiratory pattern/ effort. - Clear to auscultation No Rales, No rhonchi, No Wheezing. Cardiovascular: Auscultation: - Normal No Murmurs, Rubs or Gallops. Heart Rate And Rhythm: - Normal Regular rate and Rhythm. Edema: - Not present. Neurological: - Oriented to time, place, and person. Psychiatric: Mood: - Euthymic Appropriate mood and affect. Assessment - F53.0 - depression Therapy - Assessment of suicide risk performed Counseling/Education - Plan of care reviewed and agreed to current plan of treatment Plan StartCited - depression Sertraline HCl 25 MG tablet One tablet daily, 30 days, 0 refills EndCited - Return to the clinic if condition worsens or new symptoms arise - Modify drug dosage sertraline 25 mg a day x 1 week / then 1 tab every other day x 2 weeks then DC - Patient to call if problem develops Practice Management Use of tobacco assessment performed Review of medications documented; Standardized depression screening: negative for symptoms and for adult impression and score 0.
--- OUTSIDE RECORDS SUMMARY | 2024-12-12 06:16 | XMS_ITS | Clinical Summary ---
Author Organization [facility] Address [address] [place] [address] Phone Care Team Providers Care Video Editor Name Role Phone MAYURI RAMOS MD Primary Care Provider [phone] RACHEL Quick, VALARIE Hopkins [phone] Reason for Visit and Chief Complaint visit for: Depression Followup, visit for: Anxiety Followup - The Chief Complaint is: Yearly exam, pt is having issues with dry scalp and ezcema, itches alot and struggles to sleep because of it Problems Includes: Problems addressed during this encounter and other active Problems Current Visit Onset Date Resolved Date Provider Waqar jiménez Status Depression 08/18/2022 VALARIE Jiménez M.D. Active Last Documented On 3:41PM ; [facility] Plan of Treatment - Return to the clinic if condition worsens or new symptoms arise - Last Documented On 08/19/2023 4:21PM ; [facility] - Continue current medication wiull try to taper off meds in Spring - Last Documented On 08/19/2023 4:21PM ; [facility] - Patient to call if problem develops - Last Documented On 08/19/2023 4:21PM ; [facility] Assessments Includes: Assessments from this encounter Findings - Z00.01 - Encounter for general adult medical examination with abnormal findings - Last Documented On 08/19/2023 4:21PM ; [facility] - B36.0 - Pityriasis versicolor - Last Documented On 08/19/2023 4:21PM ; [facility] - F53.0 - depression - Last Documented On 08/19/2023 4:21PM ; [facility] Medical Equipment - Implanted Devices Includes: Current Devices No Medical Equipment Recorded Medications Includes: Medications discussed during this encounter and other current Medications New / Renewed during this visit VALARIE RAMOS M.D. on 08/19/2023 Terbinafine HCl 250 MG Oral Tablet Provider: VALARIE RAMOS M.D. 15 day supply: 15 tablet, 0 refills Diagnosis: Pityriasis versicolor One tablet daily Pharmacy: [facility], [address] , [facility], [address] - Last Documented On 09/08/2023 11:33AM By MAYURI RAMOS MD ; [facility] Current Medications (continue as prescribed) Naproxen 500 MG Oral Tablet 01/12/2024 Provider: VALARIE RAMOS M.D. Diagnosis: Pain in right kn ee ONE TABLET TWICE A DAY/ TAKE WITH FOOD Last Documented On 01/12/2024 9:00AM By MAYURI RAMOS MD ; [facility] Sertraline HCl 25 MG Oral Tablet 11/18/2023 Provider: VALARIE RAMOS M.D. Diagnosis: depre ssion One tablet daily Last Documented On 11/18/2023 3:56PM By MAYURI ARMOS MD ; [facility] Sertraline HCl 50 MG Oral Tablet 10/07/2023 Provider : VALARIE RAMOS M.D. Diagnosis: One tablet daily Last Documented On 10/07/2023 8:58AM By MAYURI RAMOS MD ; [facility] Terbinafine HCl 250 MG Oral Tablet 09/08/2023 Provider: VALARIE RAMOS M.D. Diagnosis: Pityriasis versi color 1 TABLET DAILY Last Documented On 09/08/2023 11:41AM By MAYURI RAMOS MD ; [facility] Medications Administered Includes: Administered Medications from this encounter No Administered Medications Recorded Vital Signs Includes: Vital Signs from this encounter Vital Name 08/19/2023 03:46P Blood Pressure Sitting (mmHg) 112/80 Pulse Rate-Sitting (bpm) 86 Respiration Rate (breaths/min) 17 Temp-Oral (F) 98.6 Height (in) 64 Weight (lb) 199.8 Body Mass Index 34.3 Body Surface Area 2 Oxygen Saturation (%) 100 Last Documented: On 08/19/2023 3:54PM ; [facility] Results Includes: Results discussed during this encounter CMP [facility] Ordered by VALARIE Mendoza on 10/15/2022 [address], [place], [address] Collected: 10/15/2022 Report ed: 10/15/2022 13:14 tel: Last Documented On 3 3:38PM ; [facility] Reviewed on 10/15/2022; All test results are final unless otherwise noted. Review Note Provider Name Date PT INFORMED 10/15/2022 A/G RATIO 1.5 (1.1 - 2.2) None Last Documented On 3 2:32PM ; [facility] Note: Responsible Observer: (AUG) AGE 22 YEARS None Last Documented On 3 2:32PM ; [facility] Note: Responsible Observer: (AUG) ALBUMIN 4.4 g/dL (3.5 - 5.0) None Last Documented On 3 2:32PM ; [facility] Note: Responsible Observer: (AUG) ALK PHOS 38 IU/L (40 - 150) L (Low) Last Documented On 3 2:32PM ; [facility] Note: Responsible Observer: (AUG) ALT (SGPT) 10 IU/L (0 - 55) None Last Documented On 3 2:32PM ; [facility] Note: Responsible Observer: (AUG) ANION GAP 14.9 mmol/L (8.0 - 16.0) None Last Documented On 3 2:32PM ; [facility] Note: Responsible Observer: (AUG) AST (SGOT) 13 IU/L (14 - 36) L (Low) Last Documented On 3 2:32PM ; [facility] Note: Responsible Observer: (AUG) BILIRUBIN TOT 0.4 mg/dL (0.2 - 1.0) None Last Documented On 3 2:32PM ; [facility] Note: Responsible Observer: (AUG) BUN 7 mg/dL (7 - 17) None Last Documented On 3 2:32PM ; [facility] Note: Responsible Observer: (AUG) CALCIUM 9.0 mg/dL (8.9 - 10.0) None Last Documented On 3 2:32PM ; [facility] Note: Responsible Observer: (AUG) CHLORIDE 107 mmol/L (98 - 107) None Last Documented On 3 2:32PM ; [facility] Note: Responsible Observer: (AUG) CMP See Note None Last Documented On 3 2:32P ; [facility] Note: COMPREHENSIVE METABOLIC PANELRespo nsible Observer: (AUG) CREATININE 0.7 mg/dL (0.7 - 1.2) None Last Documented On 3 2:32PM ; [facility] Note: Responsible Observer: (AUG) GFR Afr-Am 132 ml/min None Last Documented On 3 2:32P ; [facility] Note: Responsible Observer: (AUG) GFR Non-AfrAm 109 ml/min None Last Documented On 3 2:32P ; [facility] Note: GFR INTERPRETATION AGE AVG GFR 20- 29 116 ml/min/1.73 m2 30-39 107 ml/min/1.73 m2 40-49 99 ml/min/1.73 m2 50-59 93 ml/min/1.73 m2 60-69 85 ml/min/1.73 m2 70+ 75 ml/min/1.73 m2 Chronic Kidney Disease-Less than 60 ml/min Kidney Failure-Less than 15 ml/minResponsible Observer: (AUG) GLOBULIN 3.0 g/dl (2.0 - 4.2) None Last Documented On 3 2:32PM ; [facility] Note: Responsible Observer: (AUG) GLUCOSE 82 mg/dL (65 - 99) None Last Documented On 3 2:32P ; [facility] Note: Responsible Observer: (AUG) POTASSIUM 3.9 mmol/L (3.6 - 5.0) None Last Documented On 3 2:32P ; [facility] Note: Responsible Observer: (AUG) SODIUM 139 mmol/L (137 - 145) None Last Documented On 3 2:32PM ; [facility] Note: Responsible Observer: (AUG) TCO2 21.0 mmol/L (22.0 - 30.0) L (Low) Last Documented On 3 2:32PM ; [facility] Note: Responsible Observer: (AUG) TOTAL PROTEIN 7.4 g/dL (6.4 - 8.3) None Last Documented On 3 2:32PM ; [facility] Note: Responsible Observer: (AUG) THYROID PANEL (TSH & FREE T4) [facility] Ordered by VALARIE Mendoza on 10/15/2022 [email or web address] , [place], [address] Collected: 10/15/2022 Report ed: 10/15/2022 13:44 tel:[phone] Last Documented On 3 3:38PM ; [facility] Reviewed on 10/15/2022; All test results are final unless otherwise noted. Review Note Provider Name Date PT INFORMED 10/15/2022 FREE T4 0.73 ng/dL (0.78 - 2.19) L (Low) Last Documented On 3 2:32PM ; [facility] Note: Responsible Observer: (AUG) TSH 4.7376 uIU/mL (0.3500 - 4.9400) None Last Documented On 3 2:32PM ; [facility] Note: Responsible Observer: (AUG) CBC WITH DIFF [facility] [place] [facility] Ordered by VALARIE Mendoza on 08/18/2022 [address] , [place], [address] Collected: 08/18/2022 Report ed: 08/18/2022 16:42 tel:[phone] Last Documented On 3 1:24PM ; [facility] Reviewed on 08/19/2022; All test results are final unless otherwise noted. ALC 1.8 None Last Documented On 3 6:22PM ; [facility] Note: Responsible Observer: (SED) ANC 4.7 None Last Documented On 3 6:22PM ; [facility] Note: Responsible Observer: (SED) BASO# 0.0 th/uL (0.0 - 0.2) None Last Documented On 3 6:22PM ; [facility] Note: Responsible Observer: (SED) BASO% 0.4 % (0.0 - 2.0) None Last Documented On 3 6:22PM ; [facility] Note: Responsible Observer: (SED) CBC WITH DIFF See Note None Last Documented On 3 6:22PM ; [facility] Note: CBC (COMPLETE BLOOD COUNT)Responsi ble Observer: (SED) DIFF (Y/N) NO None Last Documented On 3 6:22PM ; [facility] Note: Responsible Observer: (SED) EOS# 0.09 th/uL (0.00 - 0.45) None Last Documented On 3 6:22PM ; [facility] Note: Responsible Observer: (SED) EOS% 1.3 % (0.0 - 9.0) None Last Documented On 3 6:22PM ; [facility] Note: Responsible Observer: (SED) HCT 34.2 % (38.0 - 47.0) L (Low) Last Documented On 3 6:22PM ; [facility] Note: Responsible Observer: (SED) HGB 11.5 g/dL (12.0 - 16.0) L (Low) Last Documented On 3 6:22PM ; [facility] Note: Responsible Observer: (SED) IG% 0.3 % (0.0 - 0.5) None Last Documented On 3 6:22PM ; [facility] Note: Responsible Observer: (SED) LYMPH# 1.84 th/uL (1.00 - 4.80) None Last Documented On 3 6:22PM ; [facility] Note: Responsible Observer: (SED) LYMPH% 26.4 % (14.0 - 45.0) None Last Documented On 3 6:22PM ; [facility] Note: Responsible Observer: (SED) MCH 28.8 pg (25.0 - 35.0) None Last Documented On 3 6:22PM ; [facility] Note: Responsible Observer: (SED) MCHC 33.6 g/dL (31.0 - 36.0) None Last Documented On 3 6:22PM ; [facility] Note: Responsible Observer: (SED) MCV 85.5 fl (80.0 - 100) None Last Documented On 3 6:22PM ; [facility] Note: Responsible Observer: (SED) MONO# 0.35 th/uL (0.00 - 0.80) None Last Documented On 3 6:22PM ; [facility] Note: Responsible Observer: (SED) MONO% 5.0 % (1.0 - 10.0) None Last Documented On 3 6:22PM ; [facility] Note: Responsible Observer: (SED) MPV 9.0 fl (6.0 - 11.0) None Last Documented On 3 6:22PM ; [facility] Note: Responsible Observer: (SED) NEUT# 4.63 th/uL None Last Documented On 3 6:22PM ; [facility] Note: Responsible Observer: (SED) NEUT% 66.6 % (45.0 - 76.0) None Last Documented On 3 6:22PM ; [facility] Note: Responsible Observer: (SED) NRBC% 0.0 % (0.0 - 0.0) None Last Documented On 3 6:22PM ; [facility] Note: Responsible Observer: (SED) PLT 320 th/uL (150 - 400) None Last Documented On 3 6:22PM ; [facility] Note: Responsible Observer: (SED) RBC 4.00 mil/uL (4.00 - 5.20) None Last Documented On 3 6:22PM ; [facility] Note: Responsible Observer: (SED) RDW 12.6 % (11.0 - 16.0) None Last Documented On 3 6:22PM ; [facility] Note: Responsible Observer: (SED) WBC 7.0 th/uL (4.5 - 11.0) None Last Documented On 3 6:22PM ; [facility] Note: Responsible Observer: (SED) CMP [facility] [place] Ordered by VALARIE Mendoza on 08/18/2022 [address], [place], [address] Collected: 08/18/2022 Repor charlotte: 08/18/2022 17:29 tel:[phone] Last Documented On 3 1:24PM ; [facility] Reviewed on 08/19/2022; All test results are final unless otherwise noted. A/G RATIO 1.2 (1.1 - 2.2) None Last Documented On 3 6:22PM ; [facility] Note: Responsible Observer: (TER) AGE 22 YEARS None Last Documented On 3 6:22PM ; [facility] Note: Responsible Observer: (TER) ALBUMIN 4.2 g/dL (3.5 - 5.0) None Last Documented On 3 6:22PM ; [facility] Note: Responsible Observer: (TER) ALK PHOS 103 IU/L (40 - 150) None Last Documented On 3 6:22PM ; [facility] Note: Responsible Observer: (TER) ALT (SGPT) 145 IU/L (0 - 55) H (High) Last Documented On 3 6:22PM ; [facility] Note: Responsible Observer: (TER) ANION GAP 14.7 mmol/L (8.0 - 16.0) None Last Documented On 3 6:22PM ; [facility] Note: Responsible Observer: (TER) AST (SGOT) 27 IU/L (14 - 36) None Last Documented On 3 6:22PM ; [facility] Note: Responsible Observer: (TER) BILIRUBIN TOT 0.3 mg/dL (0.2 - 1.0) None Last Documented On 3 6:22PM ; [facility] Note: Responsible Observer: (TER) BUN 6 mg/dL (7 - 17) L (Low) Last Documented On 3 6:22PM ; [facility] Note: Responsible Observer: (TER) CALCIUM 9.2 mg/dL (8.9 - 10.0) None Last Documented On 3 6:22PM ; [facility] Note: Responsible Observer: (TER) CHLORIDE 108 mmol/L (98 - 107) H (High) Last Documented On 3 6:22PM ; [facility] Note: Responsible Observer: (TER) CMP See Note None Last Documented On 3 6:22PM ; [facility] Note: COMPREHENSIVE METABOLIC PANELRespo nsible Observer: (TER) CREATININE 0.7 mg/dL (0.7 - 1.2) None Last Documented On 3 6:22PM ; [facility] Note: Responsible Observer: (TER) GFR Afr-Am 132 ml/min None Last Documented On 3 6:22PM ; [facility] Note: Responsible Observer: (TER) GFR Non-AfrAm 109 ml/min None Last Documented On 3 6:22PM ; [facility] Note: GFR INTERPRETATION AGE AVG GFR 20 -29 116 ml/min/1.73 m2 30-39 107 ml/min/1.73 m2 40-49 99 ml/min/1.73 m2 50-59 93 ml/min/1.73 m2 60-69 85 ml/min/1.73 m2 70+ 75 ml/min/1.73 m2 Chronic Kidney Disease-Less than 60 ml/min Kidney Failure-Less than 15 ml/minResponsible Observer: (TER) GLOBULIN 3.4 g/dl (2.0 - 4.2) None Last Documented On 3 6:22PM ; [facility] Note: Responsible Observer: (TER) GLUCOSE 93 mg/dL (65 - 99) None Last Documented On 3 6:22PM ; [facility] Note: Responsible Observer: (TER) POTASSIUM 3.7 mmol/L (3.6 - 5.0) None Last Documented On 3 6:22PM ; [facility] Note: Responsible Observer: (TER) SODIUM 142 mmol/L (137 - 145) None Last Documented On 3 6:22PM ; [facility] Note: Responsible Observer: (TER) TCO2 23.0 mmol/L (22.0 - 30.0) None Last Documented On 3 6:22PM ; [facility] Note: Responsible Observer: (TER) TOTAL PROTEIN 7.6 g/dL (6.4 - 8.3) None Last Documented On 3 6:22PM ; [facility] Note: Responsible Observer: (TER) History of Present Illness Includes: History of Present Illness from this encounter HPI LIANA GARCÍA is a 23 year old female. Has dry skin. - Allergy list reviewed - Medication list reviewed Anxiety stable on curent meds. Tolerating medications without problems Depression stable on curent meds. Tolerating medications without problems CHIEF COMPLAINT - Regular check-up - Itching all over the body wants to see if Sertraline could be Dced - Regular check-up - Itching all over the body wants to see if Sertraline could be Dced HISTORY OF PRESENT ILLNESS - Itching started a month ago - Itching mainly on the axilla/ ant chest - No visible rash - Difficulty sleeping due to itching - History of severe eczema as a child - Itching started a month ago - Itching mainly on the axilla/ ant chest - No visible rash - Difficulty sleeping due to itching - History of severe eczema as a child PAST MEDICAL HISTORY - 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 - No history of drug abuse - 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 Not recovering alcoholic 08/19/2023 Last Documented On 4 4:21PM ; [facility] Not recovering from substance abuse 11/2023 Last Documented On 4 4:21PM ; [facility] Number of times used recreat ional drug/ prescription drug for nonmedical reason. None 08/19/2023 Last Documented On 4 4:21PM ; [facility] Not a job-related injury 05/25/2023 Last Documented On 4 3:45PM ; [facility] Not a current smoker 02/11/2023 Last Documented On 4 3:45PM ; [facility] Working part-time 08/18/2022 Last Documented On 4 3:45PM ; [facility] Currently 08/06/2021 Last Documented On 4 3:45PM ; [facility] No tobacco use 08/06/2021 Last Documented On 4 3:45PM ; [facility] Not using alcohol 08/06/2021 Last Documented On 4 3:45PM ; [facility] Not using drugs 08/06/2021 Last Documented On 4 3:45PM ; [facility] Tobacco non-user 08/06/2021 Last Documented On 4 3:45PM ; [facility] Smoking Status Unknown Procedures and Surgical History Includes: Procedures from this encounter Procedures Code Diagnosis Performing Provider Service L ocation Service Date use of tobacco assessment performed 1000F Last Documented On 4 3:55PM ; [facility] standardized depression screening: negative for symptoms 3351F Last Documented On 4 3:46PM ; [facility] review of medications documented 1160F Last Documented On 4 3:55PM ; [facility] assessment of suicide risk performed Last Documented On 4 3:46PM ; [facility] screening for adult depression: impressi on and score 0 Last Documented On 4 3:46PM ; [facility] Medical History Includes: Medical History addressed during this encounter Description Last Updated Vaccine history 08/19/2023 Last Documented On 4 4:21PM ; [facility] Pain/condition occurs when non-weight be aring 05/25/2023 Last Documented On 4 3:45PM ; [facility] Taking medication on Sertraline 03/24/20 Last Documented On 4 3:45PM ; [facility] Family History Includes: Family History addressed during this encounter Description Last Updated 1 children 08/06/2021 Last Documented On 4 3:45PM ; [facility] Review of Systems Includes: Review of Systems from this encounter Systemic: Not feeling tired. No fever, no chills, no night sweats, and no edema. Head: No headache. Cardiovascular: No chest pain or discomfort and no palpitations. Pulmonary: No dyspnea, no dyspnea, and not expressed as feeling short of breath. No paroxysmal nocturnal dyspnea, no orthopnea, no cough, not coughing up sputum, and no hemoptysis. Gastrointestinal: Normal appetite and no polyphagia. No early satiety, no abdominal pain, and no melena. No diarrhea and no constipation. Genitourinary: No hematuria, no change in urinary frequency, and no polyuria. No dysuria. Endocrine: No polydipsia. Musculoskeletal: No muscle aches and no arthralgias. Neurological: No dizziness and no fainting. Psychological: No anxiety and no depression. Mental Status Includes: Mental Status from this encounter Description Oriented to time, place, and person No anxiety depression Functional Status Includes: Functional Status from this encounter No Functional Status Recorded Physical Exam Includes: Physical Exam from this encounter Allergies Includes: Active Allergies No Known Allergies Encounters Encounter Provider Location Date Check-In Time Check-Out Time Diagnosis ANNUAL PHYSICAL EXAM VALARIE RAMOS M.D. [facility] 024 3:42PM 3:59PM Dermatomycosis Tinea Versicolor,Routin e History & Physical Adult with Abnormal Findings,Postpart um Depression Insurance Includes: Active Insurance Policies Plan Name Member ID Group # Subscriber Relationship Effect william Dates 1 - [facility] [id number] LIANA Crawford 2 - MEDICAID [facility] [id number] LIANA Crawford Clinical Notes Includes: Clinical Notes from this encounter * Progress note Date Encounter Last Documented by 08/19/2023 ANNUAL PHYSICAL EXAM Last docume nted on 08/19/2023; 4:21 PM, VALARIE RAMOS M.D.; [facility] Active Problems & Conditions - F53.0 - Depression Chief Complaint The Chief Complaint is: Yearly exam, pt is having issues with dry scalp and ezcema, itches alot and struggles to sleep because of it. Reason For Visit Visit for: Anxiety Followup and visit for: Depression Followup. History of Present Illness LIANA GARCÍA is a 23 year old female. Has dry skin. - Allergy list reviewed - Medication list reviewed Anxiety stable on curent meds. Tolerating medications without problems Depression stable on curent meds. Tolerating medications without problems CHIEF COMPLAINT - Regular check-up - Itching all over the body wants to see if Sertraline could be Dced - Regular check-up - Itching all over the body wants to see if Sertraline could be Dced HISTORY OF PRESENT ILLNESS - Itching started a month ago - Itching mainly on the axilla/ ant chest - No visible rash - Difficulty sleeping due to itching - History of severe eczema as a child - Itching started a month ago - Itching mainly on the axilla/ ant chest - No visible rash - Difficulty sleeping due to itching - History of severe eczema as a child PAST MEDICAL HISTORY - 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 - No history of drug abuse - 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 Pulmonary: No dyspnea, no dyspnea, and not expressed as feeling short of breath. No paroxysmal nocturnal dyspnea, no orthopnea, no cough, not coughing up sputum, and no hemoptysis. Gastrointestinal: Normal appetite and no polyphagia. No early satiety, no abdominal pain, and no melena. No diarrhea and no constipation. Genitourinary: No hematuria, no change in urinary frequency, and no polyuria. No dysuria. Endocrine: No polydipsia. Musculoskeletal: No muscle aches and no arthralgias. Neurological: No dizziness and no fainting. Psychological: No anxiety and no depression. Physical Findings - Vitals taken 08/19/2023 03:46 pm BP-Sitting 112/80 mmHg 100 - 120/56 - 80 Pulse Rate-Sitting 86 bpm 50 - 100 Respiration Rate 17 per min 18 - 26 Temp-Oral 98.6 F 96 - 101 Height 64 in 60 - 69 Weight 199 lbs 12.8 oz 98 - 183 Body Mass Index 34.3 kg/m2 Body Surface Area 2 m2 Oxygen Saturation 100 % 93 - 100 Standard Measurements: - [...] rate and Rhythm. Edema: - Not present. Abdomen: - Normal Soft, Non Tender, Normaoactive bowel sounds. Musculoskeletal System: General/bilateral: - Overall findings were normal No cyanosis or digital clubbing. Neurological: - Oriented to time, place, and person. Psychiatric: Psychiatric: Value Normal Range PHQ9 score: 0 Mood: - Euthymic Appropriate mood and affect. Skin: - Skin: several circular mild hyperpigmanted macules at both axilla. Assessment - Z00.01 - Encounter for general adult medical examination with abnormal findings - B36.0 - Pityriasis versicolor - F53.0 - depression Previous Tests - Test: CBC WITH DIFF Report Date: 08/18/2022 ALC 1.8 ANC 4.7 BASO# 0.0 th/uL BASO% 0.4 % CBC WITH DIFF DIFF (Y/N) NO EOS# 0.09 th/uL EOS% 1.3 % HCT 34.2 % Low HGB 11.5 g/dL Low IG% 0.3 % LYMPH# 1.84 th/uL LYMPH% 26.4 % MCH 28.8 pg MCHC 33.6 g/dL MCV 85.5 fl MONO# 0.35 th/uL MONO% 5.0 % MPV 9.0 fl NEUT# 4.63 th/uL NEUT% 66.6 % NRBC% 0.0 % PLT 320 th/uL RBC 4.00 mil/uL RDW 12.6 % WBC 7.0 th/uL - Test: CMP Report Date: 08/18/2022 A/G RATIO 1.2 AGE 22 YEARS ALBUMIN 4.2 g/dL ALK PHOS 103 IU/L ALT (SGPT) 145 IU/L High ANION GAP 14.7 mmol/L AST (SGOT) 27 IU/L BILIRUBIN TOT 0.3 mg/dL BUN 6 mg/dL Low CALCIUM 9.2 mg/dL CHLORIDE 108 mmol/L High CMP CREATININE 0.7 mg/dL GFR Afr-Am 132 ml/min GFR Non-AfrAm 109 ml/min GLOBULIN 3.4 g/dl GLUCOSE 93 mg/dL POTASSIUM 3.7 mmol/L SODIUM 142 mmol/L TCO2 23.0 mmol/L TOTAL PROTEIN 7.6 g/dL - Test: CMP Report Date: 10/15/2022 A/G RATIO 1.5 AGE 22 YEARS ALBUMIN 4.4 g/dL ALK PHOS 38 IU/L Low ALT (SGPT) 10 IU/L ANION GAP 14.9 mmol/L AST (SGOT) 13 IU/L Low BILIRUBIN TOT 0.4 mg/dL BUN 7 mg/dL CALCIUM 9.0 mg/dL CHLORIDE 107 mmol/L CMP CREATININE 0.7 mg/dL GFR Afr-Am 132 ml/min GFR Non-AfrAm 109 ml/min GLOBULIN 3.0 g/dl GLUCOSE 82 mg/dL POTASSIUM 3.9 mmol/L SODIUM 139 mmol/L TCO2 21.0 mmol/L Low TOTAL PROTEIN 7.4 g/dL - Test: THYROID PANEL (TSH & FREE T4) Report Date: 10/15/2022 FREE T4 0.73 ng/dL Low TSH 4.7376 uIU/mL Therapy - Assessment of suicide risk performed Vaccinations - Did not receive dose of influenza virus vaccine - Did not receive dose of pneumococcal vaccine Counseling/Education - Plan of care reviewed and agreed to current plan of treatment Reviewed and Discussed lab test results with Patient. Plan StartCited - Other Follow-up Follow up in 3 months EndCited StartCited - Pityriasis versicolor Terbinafine HCl 250 MG tablet One tablet daily, 15 days, 0 refills EndCited - Return to the clinic if condition worsens or new symptoms arise - Continue current medication wiull try to taper off meds in Spring - Patient to call if problem develops Practice Management Use of tobacco assessment performed Review of medications documented; Standardized depression screening: negative for symptoms and for adult impression and score 0.
--- OUTSIDE RECORDS SUMMARY | 2024-12-12 06:16 | XMS_ITS | Clinical Summary ---
Author Organization [facility] Address [address] [place] [address] Phone Care Team Providers Care Medicaid Plan Compliance Director Name Role Phone MAYURI RAMOS MD Primary Care Provider [phone] RACHEL Quick, VALARIE Hopkins [phone] Reason for Visit and Chief Complaint The Chief Complaint is: Right knee pain for a few months Problems Includes: Problems addressed during this encounter and other active Problems All Visits Onset Date Resolved Date Provider Condition S tatus Depression 08/18/2022 VALARIE Jiménez M.D. Active Last Documented On 3:41PM ; [facility] Plan of Treatment - Return to the clinic if condition worsens or new symptoms arise - Last Documented On 12/15/2023 4:14PM ; [facility] - Patient to call if problem develops - Last Documented On 12/15/2023 4:14PM ; [facility] - Plan - start medication - Last Documented On 12/15/2023 4:14PM ; [facility] Assessments Includes: Assessments from this encounter Findings - M25.561 - Pain in right knee - Last Documented On 12/15/2023 4:14PM ; [facility] Medical Equipment - Implanted Devices Includes: Current Devices No Medical Equipment Recorded Medications Includes: Medications discussed during this encounter and other current Medications New / Renewed during this visit VALARIE RAMOS M.D. on 12/15/2023 Naproxen 500 MG Oral Tablet Provider: VALARIE RAMOS M.D. 30 day supply: 60 tablet, 0 refills Diagnosis: Pain in right knee One tablet twice a day/ take with food Pharmacy: [facility], [facility] , [place], [address] - Last Documented On 01/12/2024 8:49AM By MAYURI RAMOS MD ; [facility] Current Medications (continue as prescribed) Naproxen 500 MG Oral Tablet 01/12/2024 Provider: VALARIE RAMOS M.D. Diagnosis: Pain in right kn ee ONE TABLET TWICE A DAY/ TAKE WITH FOOD Last Documented On 01/12/2024 9:00AM By MAYURI RAMOS MD ; [facility] Sertraline HCl 25 MG Oral Tablet 11/18/2023 Provider: VALARIE RAMOS M.D. Diagnosis: depre ssion One tablet daily Last Documented On 11/18/2023 3:56PM By MAYURI RAMOS MD ; [facility] Sertraline HCl 50 MG Oral Tablet 10/07/2023 Provider : VALARIE RAMOS M.D. Diagnosis: One tablet daily Last Documented On 10/07/2023 8:58AM By MAYURI RAMOS MD ; [facility] Terbinafine HCl 250 MG Oral Tablet 09/08/2023 Provider: VALARIE RAMOS M.D. Diagnosis: Pityriasis versi color 1 TABLET DAILY Last Documented On 09/08/2023 11:41AM By MAYURI RAMOS MD ; [facility] Medications Administered Includes: Administered Medications from this encounter No Administered Medications Recorded Vital Signs Includes: Vital Signs from this encounter Vital Name 12/15/2023 03:43P Blood Pressure Sitting (mmHg) 118/70 Pulse Rate-Sitting (bpm) 80 Respiration Rate (breaths/min) 18 Temp-Oral (F) 97.7 Height (in) 64 Weight (lb) 198 Body Mass Index 34 Body Surface Area 1.9 Oxygen Saturation (%) 98 Last Documented: On 12/15/2023 3:49PM ; [facility] Results Includes: Results discussed during this encounter [...] , and No diarrhea - No myalgia Social History Description Last Updated Consuming 5 or more drinks per day None 08/19/2023 Last Documented On 4 3:42PM ; [facility] Not recovering alcoholic 08/19/2023 Last Documented On 4 3:42PM ; [facility] Not recovering from substance abuse 11/2023 Last Documented On 4 3:42PM ; [facility] Number of times used recreat ional drug/ prescription drug for nonmedical reason. None 08/19/2023 Last Documented On 4 3:42PM ; [facility] Not a job-related injury 05/25/2023 Last Documented On 4 3:42PM ; [facility] Not a current smoker 02/11/2023 Last Documented On 4 3:42PM ; [facility] Working part-time 08/18/2022 Last Documented On 4 3:42PM ; [facility] Currently 08/06/2021 Last Documented On 4 3:42PM ; [facility] No tobacco use 08/06/2021 Last Documented On 4 3:42PM ; [facility] Not using alcohol 08/06/2021 Last Documented On 4 3:42PM ; [facility] Not using drugs 08/06/2021 Last Documented On 4 3:42PM ; [facility] Tobacco non-user 08/06/2021 Last Documented On 4 3:42PM ; [facility] Smoking Status Unknown Procedures and Surgical History Includes: Procedures from this encounter Procedures Code Diagnosis Performing Provider Service L ocation Service Date education and instructions Last Documented On 4 4:14PM ; [facility] use of tobacco assessment performed 1000F Last Documented On 4 3:49PM ; [facility] review of medications documented 1160F Last Documented On 4 3:49PM ; [facility] Medical History Includes: Medical History addressed during this encounter Description Last Updated Vaccine history 08/19/2023 Last Documented On 4 3:42PM ; [facility] Pain/condition occurs when non-weight be aring 05/25/2023 Last Documented On 4 3:42PM ; [facility] Taking medication on Sertraline 03/24/20 23 Last Documented On 4 3:42PM ; [facility] Family History Includes: Family History addressed during this encounter Description Last Updated 1 children 08/06/2021 Last Documented On 4 3:42PM ; [facility] Review of Systems Includes: Review of Systems from this encounter Systemic: No edema. Head: No headache. Eyes: No itching of the eyes and no watery discharge from eyes. Cardiovascular: No chest pain or discomfort. Pulmonary: No shortness of breath. Neurological: No dizziness. Mental Status Includes: Mental Status from this encounter No Mental Status Recorded Functional Status Includes: Functional Status from this encounter No Functional Status Recorded Physical Exam Includes: Physical Exam from this encounter Allergies Includes: Active Allergies No Known Allergies Encounters Encounter Provider Location Date Check-In Time Check-Out Time Diagnosis PROBLEM VISIT VALARIE RAMOS M.D. [facility] 12/15/19 24 3:40PM 4:36PM Arthralgia - Knee / Patella / Tibia / Fibula Right Insurance Includes: Active Insurance Policies Plan Name Member ID Group # Subscriber Relationship Effect william Dates 1 - [facility] [id number] LIANA [place] 2 - MEDICAID [facility] [id number] LIANA [place] Clinical Notes Includes: Clinical Notes from this encounter * Progress note Date Encounter Last Documented by 12/15/2023 PROBLEM VISIT Last documented on 12/15/2023; 4:14 PM, VALARIE RAMOS M.D.; [facility] Active Problems & Conditions - [...]
--- OUTSIDE RECORDS SUMMARY | 2024-12-12 06:16 | XMS_ITS ---
Care Plan - [facility] Created on: December 12, 2024 GARCÍAKHRIS HOPSONROM Harry : 2000 Sex: Female Author Organization [facility] Address [address] [place] [address] Phone Care Team Providers Care Yarn Rewinder Name Role Phone MAYURI RAMOS MD Primary Care Provider [phone] RACHEL Quick, VALARIE Hopkins [phone]
--- NOTE | 2024-12-12 06:26 | LDADM ---
This patient, Sheryl Maria, was admitted to Labor/Delivery/Recovery 104 on 12/12/24 at 06:11. Plans for labor, pain management and were discussed with patient. Patient/family oriented to hospital policies and general routines including ID bracelet, bed and alarms, visiting hours, pain management, procedures, bathroom and other care routines, personal items, smoking policy, room service/diet and guest tray routines, infant security routines, and visiting hours. Patient/Family are encouraged to report perceived risks to care and to ask questions if they do not understand what they are told or what they should do. See OBIX for further documentation.
--- NOTE | 2024-12-12 06:31 | P.HP_ITS ---
H&P: HPI History of Present Illness Date/Time: 12/12/24 06:31 Chief Complaint: Induction of labor at term Narrative: This is a 24-year-old 2 para 1 with a last menstrual period was 03/03/2024, EDC is 12/09/2019 presents at 40 and half weeks gestation for induction of labor. was uncomplicated. Negative for B strep PMFSH Family History Family History Other No pertinent family history Social History Social History Smoking status: Never smoker Substance use: never Spiritual care concerns: No Comments At the time of my signature, I reviewed and agree with the nursing past medical, surgical, social, and family history. There is no relevant family history pertinent to the patient complaint. Meds Home Medications and Allergies Home Medications ?Medication ?Instructions ?Recorded ?Confirmed ?Type vit no.95-ferrous 1 tablet PO DAILY 04/25/21 05/19/21 History fumarate 28 mg-folic acid 800 mcg tablet () acetaminophen 325 mg tablet (Mapap 650 mg (2 x 325 mg) PO Q6H PRN 05/21/21 Rx (acetaminophen)) Mild Pain (1-3) Or Headache #30 tabs ibuprofen 600 mg tablet 600 mg PO Q6H PRN Cramping #30 tabs 05/21/21 Rx amoxicillin 500 mg capsule 500 mg PO Q12H #20 caps 08/11/23 Rx sertraline 50 mg tablet mg 08/11/23 History Allergies Allergy/AdvReac Type Severity Reaction Status Date / Time No Known Allergies Allergy Verified 11/27/21 14:49 Vital Signs Vital Signs - 24 hr 12/12/24 06:23 12/12/24 06:25 12/12/24 06:31 Pulse Rate 90 92 78 Blood Pressure 113/38 L 113/69 114/53 L Exam Const: General: cooperative, healthy appearing and comfortable Nutritional Appearance: overweight Orientation/consciousness: oriented to person, oriented to place and oriented to time Resp: Effort & Inspection: normal respiratory effort Cardio: Rate: regular rate Rhythm: regular rhythm Heart sounds: S1 nor mal heart sound present and S2 normal heart sound present GI: Inspection: normal to inspection (Gravid soft uterus) : External Female Exam: normal external appearance Speculum Exam - Vagina: normal appearance of the vagina Speculum Exam - Cervix: normal appearance of the cervix (Cervix 2/50/-2. Attempted a ROM) Assessment and Plan Assessment and plan (1) : Code(s): Z34.90 - Encounter for supervision of normal , unspecified, unspecified trimester Status: Acute Plan Proceed with medical induction of labor. Spontaneous vaginal delivery is expected. She is an epidural candidate
[2024-12-12 06:39] LABS: Basophils Percent Auto 0.2 % (0.2-1.2); Eosinophils Absolute Auto 0.1 K/mm3 (0-0.3); Eosinophils Percent Auto 0.9 % (0-4.4); Hematocrit 33.4 % (37.0-47.0); Hemoglobin 10.1 g/dL (12.0-15.0); Immature Granulocyte Absolute 0.07 K/mm3 (0.00-0.031); Immature Granulocyte Percent A 0.9 % (0-0.5); Lymphocytes Absolute Auto 1.46 K/mm3 (0.9-3.2); Lymphocytes Percent Auto 17.9 % (18.3-44.2); Mean Corpuscular HGB Conc 30.2 g/dl (32-36); Mean Corpuscular Volume 86.1 fl (80-100); Mean Platelet Volume 9.5 fl (7.4-10.4); Monocytes Absolute Auto 0.5 K/mm3 (0.1-0.6); Monocytes Percent Auto 5.9 % (2.6-8.5); Neutrophils Absolute Auto 6.1 K/mm3 (1.3-6.7); Neutrophils Percent Auto 74.2 % (45.5-73.1); Platelet Count Result 225 k/mm3 (150-375); Red Blood Count 3.88 M/mm3 (4.2-5.4); Red Cell Distribution Width 16.5 % (11.5-14.5); White Blood Count 8.2 K/mm3 (4.5-10.0)
[2024-12-12] MEDS: LACTATED RINGERS 1,000 ML 125 ML IV CONT ×3 (06:45→14:49)
[2024-12-12] MEDS: OXYTOCIN 30 UNITS/NS 500 ML 30 UNITS/500 ML BAG IV CONT (06:45)
[2024-12-12 07:17] LABS: Syphilis IgG/IgM Antibody Negative (Negative)
[2024-12-12 08:22] LABS: HIV 1/2 Ab P24 Ag Result Negative (Negative)
--- NOTE | 2024-12-12 09:26 | WPDANESEPP ---
Anes - Eval Pre Procedure Procedure: Labor epidural Date/Time: 12/12/24 09:26 Surgeon: Chauncey Magana Preop Diagnosis: Abdominal pain with contractions Pre Op Diagnosis: IOL Patient Data Age: 24 Gender: F Height: 1.63 m Weight: 107 kg Last Vital Signs Temp 98.2 F 12/12/24 06:45 Pulse 75 12/12/24 09:16 BP 128/63 12/12/24 09:16 Pulse Ox 100 12/12/24 09:20 O2 Del Method Room Air 12/12/24 06:26 Allergies Allergy/AdvReac Type Severity Reaction Status Date / Time No Known Allergies Allergy Verified 11/27/21 14:49 Home Medications ?Medication ?Instructions ?Recorded ?Confirmed ?Type No Home Medications 12/12/24 12/12/24 History Laboratory Tests 12/12/24 06:33 WBC 8.2 K/mm3 (4.5-10.0) RBC 3.88 L M/mm3 (4.2-5.4) Hgb 10.1 L g/dL (12.0-15.0) Hct 33.4 L % (37.0-47.0) MCV 86.1 fl (80-100) MCH 26.0 pg (26-34) MCHC 30.2 L g/dl (32-36) RDW 16.5 H % (11.5-14.5) Plt Count 225 k/mm3 (150-375) MPV 9.5 fl (7.4-10.4) Immature Gran % (Auto) 0.9 H % (0-0.5) Neut % (Auto) 74.2 H % (45.5-73.1) Lymph % (Auto) 17.9 L % (18.3-44.2) [place] % (Auto) 5.9 % (2.6-8.5) Eos % (Auto) 0.9 % (0-4.4) Baso % (Auto) 0.2 % (0.2-1.2) Lymph # (Auto) 1.46 K/mm3 (0.9-3.2) [place] # (Auto) 0.5 K/mm3 (0.1-0.6) Eos # (Auto) 0.1 K/mm3 (0-0.3) Baso # (Auto) 0.0 K/mm3 (0.0-0.1) Abs Immat Gran (auto) 0.07 H K/mm3 (0.00-0.031) Absolute Neuts (auto) 6.1 K/mm3 (1.3-6.7) Absolute Nucleated RBC 0.000 K/mm3 (0.0-0.012) Nucleated RBC % 0.0 % (0.0-0.2) Syphilis IgG/IgM Ab Negative (Negative) HIV 1&2 Ab/P24 Ag 4thGn Negative (Negative) Blood Type A Positive Antibody Screen Negative : gestational age HCG: positive Patient hx anesthesia problems: none Family hx anesthesia problems: none Results Review: All pre-operative results and documents have been reviewed as part of the pre-operative evaluation. [facility] Past Medical History Medical History (Updated 12/12/24 @ 09:26 by Darion Rolon Jr., CRNA) Obesity (BMI 30-39.9) Pain during labor Family History Family History Other No pertinent family history Social History Social History Smoking status: Never smoker Substance use: never Do You Feel Safe in your Home?: Yes Lack of Transportation: No Lack of Food: Never True Current Housing: I Have Housing Concerned About Future Housing: No Difficulty Paying Gas/Electric Bills: No Difficulty Paying for Meds: No Currently Unemployed: No Education: High School Diploma/GED Difficulty w/ Childcare or Family Care: No Spiritual care concerns: No Exam Day of Procedure 12/12/24 09:26 Patient weight: morbidly obese
[2024-12-12] MEDS: PHENYLEPHRINE 1,000 MCG/10 ML SYRINGE 100 MCG IV PUSH ×2 (10:52→11:01)
--- NOTE | 2024-12-12 11:53 | PM.OBPNLAB ---
Pain Control Date/time seen: 12/12/24 11:53 Pain control: tolerating well and epidural Pelvic Exam Dilation (cm): 4 Effacement (%): 70 station: -2 Amniotic membrane status: Leaking
[2024-12-12] MEDS: SODIUM CHLORIDE 0.9% IV 300 ML 600 ML I-UTERINE (15:11)
[2024-12-12] MEDS: TERBUTALINE SULFATE 1 MG/ML VIAL 0.25 MG SUB-Q (15:44)
[2024-12-12] MEDS: ACETAMINOPHEN 500 MG TABLET 1000 MG PO (15:49)
--- NOTE | 2024-12-12 16:07 | PM.OBPNLAB ---
Pain Control Date/time seen: 12/12/24 16:07 Pain control: tolerating well and epidural Pelvic Exam Dilation (cm): 9 Effacement (%): 100 station: -1 Amniotic membrane status: Leaking Comments: early decel responded to repositioning
--- NOTE | 2024-12-12 18:24 | PM.OBPRVD ---
OB - Vaginal Delivery Note Procedure Delivery date: 12/12/24 Events: Elective Induction of Labor Induction method: AROM Delivery augmentation: Pitocin Delivery monitor: External FHT and Internal FHT Route of delivery: Episiotomy description: None Laceration Description: Perineal - 1st Degree Delivery repair: vicryl Specimen: No Quantitative Blood Loss (ml): 62 Anesthesia type: Epidural Disposition: Floor Complications: No immediate complications Narrative: Patient was admitted for induction labor early the 12/12/2024. Artificial rupture membranes performed the a.m.. She progressed an unremarkable 1st stage of labor to completely dilated pushed delivered head spontaneously in the GUILLERMO position. Anterior posterior shoulder delivered spontaneously. Cord clamped x2 and cut infant passed off the table given Apgars of 8 [id number]. Cord blood was drawn. Placenta delivered intact spontaneously. Twenty of Pitocin placed IV to help firm the uterus. After inspecting lateral sidewall small 1st degree laceration was noted was placed QBL is 62cc. All sponge, needle, instrument counts were correct. There were no immediate complications [place] Baby Date of : 12/12/24 Time of : 18:13 Gestational Age by Date: 40 gender: Male presentation: vertex position: Right Occiput Anterior Placenta delivery description: Spontaneous Cord Vessel Description: 3 Vessels score one minute: 8 score five minutes: 9
--- NOTE | 2024-12-12 18:26 | PM.DS ---
DS: Admitting Diagnosis Discharge Date 12/14/2024 Admitting Diagnosis term DS: Discharge Diagnosis Discharge Diagnosis (1) : Code(s): Z34.90 - Encounter for supervision of normal , unspecified, unspecified trimester Status: Acute DS: Summary Hospital Course Reason for hospitalization: Patient was admitted for induction of labor at40+ weeks gestation on 12/12/2024 and underwent spontaneous vaginal delivery with epidural anesthesia Hospital Course: The patient's hospital course unremarkable. She remained afebrile. She was up, voiding without difficulty, eating regular diet, ambulating, and generally without complaints. Time Spent with Patient Time attestation: Total time spent providing and/or coordinating discharge services: Exam Const: General: cooperative, healthy appearing and comfortable Nutritional Appearance: overweight Orientation/consciousness: oriented to person, oriented to place and oriented to time Resp: Effort & Inspection: normal respiratory effort Cardio: Rate: regular rate Rhythm: regular rhythm Heart sounds: S1 normal heart sound present and S2 normal heart sound present GI: Inspection: normal to inspection (Gravid soft uterus) : External Female Exam: normal external appearance Speculum Exam - Vagina: normal appearance of the vagina Speculum Exam - Cervix: normal appearance of the cervix (Cervix 2/50/-2. Attempted a ROM) DS: Data Data Completed and Pending Labs on day of discharge: Labs from last 24 hours 12/12/24 06:33 WBC 8.2 RBC 3.88 L Hgb 10.1 L Hct 33.4 L MCV 86.1 MCH 26.0 MCHC 30.2 L RDW 16.5 H Plt Count 225 MPV 9.5 Immature Gran % (Auto) 0.9 H Neut % (Auto) 74.2 H Lymph % (Auto) 17.9 L [place] % (Auto) 5.9 Eos % (Auto) 0.9 Baso % (Auto) 0.2 Lymph # (Auto) 1.46 [place] # (Auto) 0.5 Eos # (Auto) 0.1 Baso # (Auto) 0.0 Abs Immat Gran (auto) 0.07 H Absolute Neuts (auto) 6.1 Absolute Nucleated RBC 0.000 Nucleated RBC % 0.0 Syphilis IgG/IgM Ab Negative HIV 1&2 Ab/P24 Ag 4thGn Negative Blood Type A Positive Antibody Screen Negative Discharge Plan Discharge Attending physician on discharge: Dalla Wagoner,Sheldon J. Discharging Clinician: Sheldon Moore Patient Disposition: Home Activity: may shower, no straining and pelvic rest Diet: heart healthy Wound Care Instructions: follow printed instructions Patient Instructions: Antibiotic Form Patient Language: Polish Stand Alone Forms: General Discharge Information Follow-up/Referrals: Sheldon Moore MD [Physician] - Discharge Medications: No Action No Home Medications Date of admission: 12/12/24 06:11 Primary Care Provider: PHYSICIAN NOT ON STAFF,NONSTAFF Admitting Provider: Sheldon Moore Attending physician on admission: Sheldon Moore Condition: Stable
[2024-12-12] MEDS: OXYTOCIN 30 UNITS/NS 500 ML 30 UNITS/500 ML BAG 125 UNITS IV CONT (18:55)
[2024-12-12] MEDS: BENZOCAINE 20% AER SPR (*SP) 56 GM CAN 1 SPRAY TOPICAL (20:33)
[2024-12-12] MEDS: WITCH HAZEL 40 PADS 1 PAD TOPICAL (20:33)
[2024-12-13] MEDS: ACETAMINOPHEN 325 MG TABLET 650 MG PO ×3 (01:25→20:58)
[2024-12-13 04:50] LABS: Hemoglobin 8.2 g/dL (12.0-15.0)
[2024-12-13] MEDS: IBUPROFEN 600 MG TABLET PO ×2 (05:08→20:58)
--- NOTE | 2024-12-13 07:09 | P.PNOB_ITS ---
OB - PN: Subj Subjective Date/time seen: 12/13/24 07:09 Patient comments: no complaints, pain well controlled and tolerating diet [place] baby status: doing well OB - PN: Obj Data Labs 12/13/24 03:59 Labs: Laboratory Results - last 24 hr 12/12/24 12/13/24 06:33 03:59 Hgb 8.2 L Hct 27.0 L Syphilis IgG/IgM Ab Negative HIV 1&2 Ab/P24 Ag 4thGn Negative Blood Type A Positive Antibody Screen Negative OB - PN A/P Assessment and Plan (1) : Code(s): Z34.90 - Encounter for supervision of normal , unspecified, unspecified trimester Status: Acute Plan routine care Time Spent With Patient Time: Total time spent is greater than 50% in coordination of care (as documented) at patient's floor/unit and/or counseling patient: Review of Systems 2 Constitutional: Constitutional: Reports no additional constitutional complaints, Reports body ache(s), Denies chills, Denies fatigue, Denies fever(s) and Reports headache(s) Eyes: Eyes: Reports no additional eye complaints and Denies blurry vision ENT: Reports system reviewed and no additional complaints, except as documented, Denies vertigo, Denies dizziness, Denies ear discharge, Denies otalgia, Denies facial pain, Denies headache(s), Denies nasal congestion, Denies nasal discharge, Denies sinus pain, Denies sinus pressure and Reports sore throat Cardiovascular: Cardiovascular: Reports no additional cardiovascular complaints, Denies chest pain, Denies chest pain at rest, Denies rapid heart rate and Denies dyspnea Respiratory: Respiratory: Reports no additional respiratory complaints, Denies chest congestion, Denies cough, Denies pain on inspiration, Denies pain with cough and Denies dyspnea Gastrointestinal: Gastrointestinal: Denies abdominal pain, Denies diarrhea, Denies nausea and Denies vomiting Integumentary/Breasts: Skin/Breast: Denies rash Neurologic: Reports system reviewed and no additional complaints, except as documented, Denies vertigo, Denies dizziness and Denies headache(s) Endocrine: Endocrine: Denies fatigue Exam 2 Const: General: cooperative, healthy appearing and comfortable Nutritional Appearance: average body habitus Orientation/consciousness: oriented to person, oriented to place and oriented to time HENMT: Head: normal to inspection Resp: Effort & Inspection: normal respiratory effort Cardio: Rate: regular rate Rhythm: regular rhythm Heart sounds: S1 normal heart sound present and S2 normal heart sound present GI: Inspection: normal to inspection
[2024-12-13 07:35] VITALS: BP 119/68; PULSE 85; RESP 16; TEMP 36.8; O2SAT 99
--- NOTE | 2024-12-13 07:59 | WPDANLDPN2 ---
Anes-Prog Note L&D Date/Time: 12/13/24 07:59 Comfortable throughout: labor and delivery Neuraxial method: epidural Epidural/Spinal procedure site: clean & non-tender Neuro status: Neuro function grossly intact. Cardiovascular status: normal Respiratory status: normal Airway patency: baseline Mental status: baseline Post-Op hydration status: normal Vital Signs: Last Vital Signs Temp 36.5 C 12/12/24 23:45 Pulse 80 12/12/24 23:45 Resp 16 12/12/24 23:45 BP 119/62 12/12/24 23:45 Pulse Ox 98 12/12/24 23:45 O2 Del Method Room Air 12/12/24 06:26 Pain score (VAS): 0/10 I/O: Intake & Output 12/12/24 12/12/24 12/13/24 15:59 23:59 07:59 Intake Total 1999 Output Total 1392 Balance 1999 -139 Post-procedural complaints: none Patient feedback: Patient satisfied with anesthetic care.
[2024-12-13] MEDS: DOCUSATE SODIUM 100 MG CAPSULE PO ×2 (08:00→16:00)
[2024-12-13] MEDS: POLYSACCHARIDE IRON COMPLEX 150 MG CAPSULE PO ×2 (08:00→16:00)
[2024-12-13 11:51] VITALS: BP 107/62; PULSE 91; RESP 16; TEMP 36.8; O2SAT 97
[2024-12-14 00:10] VITALS: BP 110/59; PULSE 76; RESP 18; TEMP 36.1; O2SAT 98
--- NOTE | 2024-12-14 05:48 | P.PNOB_ITS ---
OB - PN: Subj Subjective Date/time seen: 12/14/24 05:48 Patient comments: no complaints and tolerating diet baby status: doing well OB - PN: Obj Data Labs 12/13/24 03:59 OB - PN A/P Assessment and Plan (1) : Code(s): Z34.90 - Encounter for supervision of normal , unspecified, unspecified trimester Status: Acute Plan Comments: home Time Spent With Patient Time: Total time spent is greater than 50% in coordination of care (as documented) at patient's floor/unit and/or counseling patient: Review of Systems 2 Constitutional: Constitutional: Reports no additional constitutional complaints, Reports body ache(s), Denies chills, Denies fatigue, Denies fever(s) and Reports headache(s) Eyes: Eyes: Reports no additional eye complaints and Denies blurry vision ENT: Reports system reviewed and no additional complaints, except as documented, Denies vertigo, Denies dizziness, Denies ear discharge, Denies otalgia, Denies facial pain, Denies headache(s), Denies nasal congestion, Denies nasal discharge, Denies sinus pain, Denies sinus pressure and Reports sore throat Cardiovascular: Cardiovascular: Reports no additional cardiovascular complaints, Denies chest pain, Denies chest pain at rest, Denies rapid heart rate and Denies dyspnea Respiratory: Respiratory: Reports no additional respiratory complaints, Denies chest congestion, Denies cough, Denies pain on inspiration, Denies pain with cough and Denies dyspnea Gastrointestinal: Gastrointestinal: Denies abdominal pain, Denies diarrhea, Denies nausea and Denies vomiting Integumentary/Breasts: Skin/Breast: Denies rash Neurologic: Reports system reviewed and no additional complaints, except as documented, Denies vertigo, Denies dizziness and Denies headache(s) Endocrine: Endocrine: Denies fatigue Exam 2 Const: General: cooperative, healthy appearing and comfortable Nutritional Appearance: average body habitus Orientation/consciousness: oriented to person, oriented to place and oriented to time HENMT: Head: normal to inspection Resp: Effort & Inspection: normal respiratory effort Cardio: Rate: regular rate Rhythm: regular rhythm Heart sounds: S1 normal heart sound present and S2 normal heart sound present GI: Inspection: normal to inspection
[2024-12-14 07:20] VITALS: BP 115/68; PULSE 82; RESP 16; TEMP 36.9; O2SAT 99
[2024-12-14] MEDS: ACETAMINOPHEN 325 MG TABLET 650 MG PO (08:16)
[2024-12-14] MEDS: DOCUSATE SODIUM 100 MG CAPSULE PO (08:16)
[2024-12-14] MEDS: POLYSACCHARIDE IRON COMPLEX 150 MG CAPSULE PO (08:16)
[2024-12-14] MEDS: IBUPROFEN 600 MG TABLET PO (08:16)
--- NOTE | 2024-12-14 13:17 | OBPPTRN ---
Patient and baby transferred to post room #280 via ( stretcher) Support person present. Oriented to unit, room, information board, rooming in, admission packet and security measures. Patient verbalizes understanding.
[2024-12-16 11:25] VITALS: BP 127/71; PULSE 92; RESP 20; TEMP 36.6; O2SAT 100
== END 2024-12-14 16:19 | disposition home or self-care (01) | DRG 807 ==
LOC: ANHLDR 18:28 → ANHOB2 21:51
PROVIDERS: Admitting Provider Obstetrics & Gynecology; Visit Provider Obstetrics & Gynecology
DX: O70.0 First degree perineal laceration during delivery (principal); Z37.0 Single live birth; Z3A.40 40 weeks gestation of pregnancy
CPT/HCPCS: 36415; 85014; 85018; 85025; 86593; 86703; 86850; 86900; 86901; A9270; G0432; J2371; J2590; J2795; J3105; J7030; J7120